=== PATIENT | male | born 1970 | race Caucasian/White ===

== ENCOUNTER → 2016-04-05 | Outpatient (REF) | payer OTHER ==
[~2016-04-05] MED LIST: /TAMS4CA PO; CIPR500T89 PO; DEPA250T32 PO; KETO10TAB PO; OMEP40CA2 PO; VESI10TA PO
[2016-04-05 13:12] LABS: IMMMOTILE SPERM CENTRIFUGED ABSENT (ABSENT); IMMOTILE SPERM ABSENT (ABSENT); MOTILE SPERM ABSENT (ABSENT); MOTILE SPERM CENTRIFUGED ABSENT (ABSENT)
== END ==
LOC: M SMT 11:59
PROVIDERS: ATTEND Urology
DX: Z30.2 Encounter for sterilization (principal)

== ENCOUNTER → 2016-05-25 | Outpatient (CLI) | payer OTHER ==
[2016-05-25 13:24] LABS: BASO % 0.7 % (0.0-1.0); EOS % 0.9 % (0.0-3.0); LARGE UNSTAINED CELL # 0.1 K/mm3 (0.0-0.4); LARGE UNSTAINED CELL % 3.1 % (0.0-4.0); LYMPH # 1.8 K/mm3 (1.5-4.5); LYMPH % 40.8 % (24.0-44.0); MEAN CORPUSCULAR HEMOGLOBIN 29.7 pg (27.0-33.0); MEAN CORPUSCULAR HGB CONC 33.6 g/dl (32.0-36.5); MEAN CORPUSCULAR VOLUME 88.4 fl (80.0-96.0); MONO # 0.6 K/mm3 (0.0-0.8); MONO % 15.5 % (0.0-5.0); NEUTROPHILS # 1.6 K/mm3 (1.8-7.7); NEUTROPHILS % 38.9 % (36.0-66.0); PLATELET COUNT, AUTOMATED 190 k/mm3 (150-450); RED CELL DISTRIBUTION WIDTH 12.3 % (11.5-14.5); WHITE BLOOD COUNT 4.1 K/mm3 (4.0-10.0)
[2016-05-25 13:57] LABS: ALBUMIN 3.8 GM/DL (3.2-5.2); ALBUMIN/GLOBULIN RATIO 1.19 (1.00-1.93); ALKALINE PHOSPHATASE 73 U/L (45-117); ALT/SGPT 39 U/L (12-78); ANION GAP 5 MEQ/L (8-16); AST/SGOT 29 U/L (15-37); BILIRUBIN,TOTAL 0.9 MG/DL (0.2-1.0); BLOOD UREA NITROGEN 13 MG/DL (7-18); CALCIUM LEVEL 9.2 MG/DL (8.5-10.1); CARBON DIOXIDE LEVEL 30 MEQ/L (21-32); CHLORIDE LEVEL 109 MEQ/L (98-107); CHOLESTEROL LEVEL 150 MG/DL (<200); CREATININE FOR GFR 1.03 MG/DL (0.70-1.30); FREE T4 1.14 NG/DL (0.76-1.46); GLOMERULAR FILTRATION RATE > 60.0 (>60); GLUCOSE, FASTING 90 MG/DL (70-105); POTASSIUM SERUM 3.9 MEQ/L (3.5-5.1); SODIUM LEVEL 144 MEQ/L (136-145); TRIGLYCERIDES LEVEL 81 MG/DL (<150)
== END ==
LOC: M LAB 12:57
PROVIDERS: ATTEND Physician Assistant
DX: R79.89 Other specified abnormal findings of blood chemistry (principal)

== ENCOUNTER → 2016-06-09 | Outpatient (CLI) | payer OTHER ==
--- NOTE | 2016-06-10 13:59 | REP ---
NUCLEAR THYROID SCAN: Following the oral administration of 370 microcuries of Iodine 123 of sodium iodine, thyroid uptake is measured. The 2 hour uptake is 6.95% which is within the normal range of the 6-12%. The 24 hour uptake is 33.7% which is within the normal range of 25-35%. Thyroid scan shows both lobes to be relatively normal in size, with the length of both lobes between 4 and 5 cm. No focal hot or cold nodule is seen. IMPRESSION: Unremarkable thyroid uptake and scan as above. Signed by Lalito Zapata MD 06/10/2016 03:29 P
== END ==
LOC: M RAD 08:42
PROVIDERS: ATTEND Physician Assistant
DX: E05.90 Thyrotoxicosis, unspecified without thyrotoxic crisis or storm (principal)

== ENCOUNTER → 2016-06-29 | Outpatient (REF) | payer OTHER | LOC: M LABDRAW1 13:23 | PROVIDERS: ATTEND Internal Medicine Endocrinology, Diabetes & Metabolism | DX: E05.00 Thyrotoxicosis with diffuse goiter without thyrotoxic crisis or storm (principal) ==

== ENCOUNTER 2016-08-16 00:19 | Emergency (ER) | payer OTHER ==
[~2016-08-16] VITALS: Ht 182.9 cm; Wt 80.0 kg
[2016-08-16] MEDS ORDERED: AVON1KIT IM (00:29)
[2016-08-16] MEDS ORDERED: MECLIZINE 25 MG TABLET PO ONE (03:15)
[2016-08-16] MEDS ORDERED: METOCLOPRAMIDE INJ 10MG/2ML VIAL (J2765) IV ONE (03:15)
[2016-08-16] MEDS ORDERED: KETOROLAC 30 MG/ML VIAL (J1885) IV ONE (03:15)
[2016-08-16] MEDS ORDERED: NS 1,000 ML IV ONE (03:15)
[2016-08-16] MEDS ORDERED: MECL-68 PO (04:55)
[2016-08-16 05:10] VITALS: BP 122/68
== END 2016-08-16 05:30 | disposition home or self-care (01) ==
LOC: M ED 01:28
DX: G35 Multiple sclerosis (principal); T37.5X5A Adverse effect of antiviral drugs, initial encounter

== ENCOUNTER → 2016-10-22 | Outpatient (CLI) | payer OTHER ==
[~2016-10-22] MED LIST changes: +AVON1KIT IM; +GABA-279 PO; +IBUP-1022 PO; +MECL-68 PO; +PRED20TA PO
[2016-10-22 13:29] LABS: FREE T4 1.19 NG/DL (0.76-1.46)
== END ==
LOC: M LAB 12:17
PROVIDERS: ATTEND Internal Medicine Endocrinology, Diabetes & Metabolism
DX: E05.00 Thyrotoxicosis with diffuse goiter without thyrotoxic crisis or storm (principal)

== ENCOUNTER → 2016-11-10 | Outpatient (CLI) | payer OTHER ==
--- NOTE | 2016-11-10 11:51 | REP ---
RIGHT ANKLE SERIES: Five views. HISTORY: Injury. FINDINGS: Five views of the right ankle demonstrate prominent plantar calcaneal spurring. Ankle mortise is intact. No fracture is seen. IMPRESSION: Plantar heel spurring. No fracture noted. Signed by Oli Barrera MD 11/10/2016 01:12 P
--- NOTE | 2016-11-10 11:51 | REP ---
RIGHT FOOT SERIES: Four views. HISTORY: Injury with dorsal and midfoot pain. FINDINGS: Four views right foot show overall normal mineralization. Plantar calcaneal spurring is noted. No fracture or subluxation is seen. IMPRESSION: Heel spurring. No acute bony abnormality. Signed by Oli Barrera MD 11/10/2016 01:11 P
== END ==
LOC: M LRY 11:10
PROVIDERS: ATTEND Nurse Practitioner Family
DX: M77.31 Calcaneal spur, right foot (principal)

== ENCOUNTER 2016-11-14 15:09 | Emergency (ER) | payer OTHER ==
[~2016-11-14] VITALS: Ht 182.9 cm; Wt 79.5 kg
[~2016-11-14 15:09] MED LIST changes: -GABA-279 PO; -IBUP-1022 PO; -PRED20TA PO
[2016-11-14] MEDS ORDERED: IBUP-1022 PO (15:43)
[2016-11-14] MEDS ORDERED: PRED20TA PO (20:44)
[2016-11-14] MEDS ORDERED: GABA-279 PO (20:44)
[2016-11-14] MEDS ORDERED: predniSONE 20 MG TAB PO ONE (20:45)
[2016-11-14 20:58] VITALS: BP 118/78
== END 2016-11-14 20:59 | disposition home or self-care (01) ==
LOC: M ED 15:09
DX: M25.571 Pain in right ankle and joints of right foot (principal); X50.1XXA Overexertion from prolonged static or awkward postures, initial encounter; Y92.89 Other specified places as the place of occurrence of the external cause; Y93.89 Activity, other specified; Y99.0 Civilian activity done for income or pay

== ENCOUNTER 2017-01-25 01:39 | Emergency (ER) | payer OTHER, SELFPAY ==
[~2017-01-25] VITALS: Ht 182.9 cm; Wt 77.7 kg
[~2017-01-25 01:39] MED LIST changes: +GABA-279 PO; +IBUP-1022 PO; +PRED20TA PO
[2017-01-25 02:56] LABS: BASO % 0.5 % (0.0-1.0); EOS # 0.2 10^3/uL (0.0-0.50); IMMATURE GRANULOCYTE % 0.2 % (0-0); LYMPH # 2.5 10^3/uL (1.5-4.5); LYMPH % 38.2 % (24.0-44.0); MEAN CORPUSCULAR HEMOGLOBIN 29.6 pg (27.0-33.0); MEAN CORPUSCULAR HGB CONC 34.1 g/dl (32.0-36.5); MEAN CORPUSCULAR VOLUME 86.7 fl (80.0-96.0); MONO # 0.8 10^3/uL (0.0-0.8); MONO % 11.9 % (0.0-5.0); NEUTROPHILS % 46.2 % (36.0-66.0); PLATELET COUNT, AUTOMATED 193 10^3/uL (150-450); RED CELL DISTRIBUTION WIDTH 11.9 % (11.5-14.5); WHITE BLOOD COUNT 6.6 10^3/uL (4.0-10.0)
[2017-01-25 03:05] LABS: INR 1.04
[2017-01-25 03:21] LABS: ANION GAP 6 MEQ/L (8-16); BLOOD UREA NITROGEN 16 MG/DL (7-18); CALCIUM LEVEL 9.1 MG/DL (8.5-10.1); CARBON DIOXIDE LEVEL 30 MEQ/L (21-32); CHLORIDE LEVEL 107 MEQ/L (98-107); CREATININE FOR GFR 1.01 MG/DL (0.70-1.30); GLOMERULAR FILTRATION RATE > 60.0 (>60); GLUCOSE, FASTING 134 MG/DL (70-105); POTASSIUM SERUM 3.6 MEQ/L (3.5-5.1); SODIUM LEVEL 143 MEQ/L (136-145)
--- NOTE | 2017-01-25 03:30 | REPUSA ---
CLINICAL HISTORY: Suspected cerebrovascular accident. TECHNIQUE: Multiple axial brain CT scan sections were obtained from base to vertex without contrast a dministration. COMMENTS: The study shows normal configuration of sella turcica. There are no intra or extra-axial collections. There is no mass effect or midline shift. There is no evidence of hematoma formation. No hydrocephal us is present. No abnormal calcifications are noted. No significant abnormalities are seen either in the posterior fossa or supratentorial compartment. The sinuses and mastoid air cells are patent. IMPRESSION: No evidence of acute intracranial pathology. Thank you for your kind referral of this patient.
[2017-01-25] MEDS ORDERED: METOCLOPRAMIDE INJ 10MG/2ML VIAL (J2765) IV ONE (04:00)
[2017-01-25] MEDS ORDERED: NS 1,000 ML IV ONE (04:00)
[2017-01-25] MEDS ORDERED: diphenhydrAMINE INJ 50MG/ML VIAL (J1200) IV ONE (04:00)
[2017-01-25] MEDS ORDERED: KETOROLAC 30 MG/ML VIAL (J1885) IV ONE (04:00)
[2017-01-25] MEDS ORDERED: PROHANCE 279.3MG/ML 15ML VIAL (A9576) As Ordered ONE (06:08)
--- NOTE | 2017-01-25 07:30 | REPUSA ---
CLINICAL HISTORY: MS. vertigo. TECHNIQUE: MRI of the brain was performed without administration of intravenous contrast material. T1 spine echo, T2 fast spin echo and FLAIR sequences were obtained in sagittal, axial and coronal plane s. 15 cc of ProHance were injected intravenously. FINDINGS: The sella and parasellar regions are unremarkable in appearance. The corpus callosum and cerebellar t onsils are of normal configuration and position. There are no intra or extra-axial collections. There is no mass effect or midline shift. There is no evidence of hematoma formation. There is no hydrocep halus. The brain stem shows no mass effects, infarcts or hemorrhage. There are no cerebellopontine tumors. T he acoustic nerves are symmetrical. No cerebellar intra-axial pathology delineated. The fourth ventri bertrand and aqueduct are normal. No abnormalities of the optic nerves are identified. There is no evidenc e of atrophic or degenerative changes. No dural or subdural masses or collections are detected. The visualized arterial structures demonstrate normal appearing flow voids. The VII and VIII nerve bu ndles are visualized and are unremarkable in appearance. Several foci of T2/FLAIR hyperintensity are noted in the bilateral periventricular and subcortical wh ite matter. The foci measure between 3 and 12 mm in diameter. No associated abnormal enhancement or r estricted diffusion. Similar foci are noted in the infratentorial white matter more prominent surrounding the fourth ventr icle. 2.6 cm chronic mucous retention cyst in the right maxillary sinus. IMPRESSION: Multiple T2 hyperintense foci in the periventricular and to a lesser extent subcortical supratentoria l white matter. Findings are suggestive of demyelinating disease. Multiple similar smaller at foci identified on the T2-weighted images demonstrate increased signal in the periventricular white matter surrounding the fourth ventricle. Findings are suggestive of demyel inating disease. No restricted diffusion or abnormal enhancement is identified in a manner suggestive of active demyel inating plaque. Thank you for your kind referral of this patient.
--- NOTE | 2017-01-25 07:50 | REPUSA ---
CLINICAL HISTORY: Vertigo. TECHNIQUE: Three dimensional mrkz-hs-kajkyw angiography is performed of the [place] of [place]. The vesna dy was performed with IV contrast agent. 15 cc of ProHance were injected intravenously. FINDINGS: The supraclinoid portions of the internal carotid arteries are of normal shape. The normal bifurcation is seen. The middle cerebral arteries are unremarkable in appearance. The posterior circu lation is visualized and shows no evidence of occlusion or aneurysm formation. The basilar tip is see n and shows no aneurysm formation. There is no evidence of beading to suggest vasculitis. IMPRESSION: MRA of the man[place] of [place] is within normal limits. Thank you for your kind referral of this patient.
--- NOTE | 2017-01-25 08:09 | REP ---
Clinical: Acute cerebrovascular accident . Comparison: 05/07/2015 . Findings: The mediastinum and cardiac silhouette are stable and within normal limits for portable technique. The lung hannon are clear without acute consolidation, effusion, or pneumothorax. Skeletal structures are intact. Impression: No acute cardiopulmonary process appreciated. Signed by Shakir Kent MD 01/25/2017 08:00 A
[2017-01-25] MEDS ORDERED: methylPREDNISolone 1,000 MG, VIAL MATE ADAPTER 1 EACH in D5W 250 ML IV ONE (09:00)
--- NOTE | 2017-01-25 09:25 | ECGEPIP ---
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
[2017-01-25 10:28] VITALS: BP 105/69
[2017-01-26] MEDS ORDERED: KETO10TAB PO (13:45)
[2017-01-26] MEDS ORDERED: PRED20TA PO (13:45)
[2017-01-26] MEDS ORDERED: PRIL20CA9 PO (13:45)
== END 2017-01-25 10:35 | disposition home or self-care (01) ==
LOC: M ED 01:39
DX: G35 Multiple sclerosis (principal); Z79.899 Other long term (current) drug therapy; Z88.5 Allergy status to narcotic agent; Z88.8 Allergy status to other drugs, medicaments and biological substances
CPT/HCPCS: 70450; 70544; 70553; 71010; 80048; 81001; 82550; 82553; 85025; 85610; 85730; 86850; 86900; 86901; 87086; 93000; 93041; 96361; 96365; 96375; 99285; A9576; J1200; J1885; J2765; J2930; J3360

== ENCOUNTER 2017-01-25 22:12 | Emergency (ER) | payer OTHER ==
[~2017-01-25] VITALS: Ht 182.9 cm; Wt 77.7 kg
[2017-01-25] MEDS ORDERED: MORPHINE 10 MG/ML 1ML VIAL IM ONE (23:00)
[2017-01-25 23:46] VITALS: BP 125/65
[2017-01-26] MEDS ORDERED: PRIL20CA9 PO (13:45)
[2017-01-26] MEDS ORDERED: KETO10TAB PO (13:45)
[2017-01-26] MEDS ORDERED: PRED20TA PO (13:45)
== END 2017-01-25 23:47 | disposition home or self-care (01) ==
LOC: M ED 22:12
DX: G35 Multiple sclerosis (principal); M54.9 Dorsalgia, unspecified; M79.605 Pain in left leg

== ENCOUNTER 2017-01-26 10:12 | Emergency (ER) | payer OTHER ==
[~2017-01-26] VITALS: Ht 182.9 cm; Wt 77.7 kg
[2017-01-26] MEDS ORDERED: methylPREDNISolone 1,000 MG, VIAL MATE ADAPTER 1 EACH in D5W 250 ML IV ONE (11:00)
[2017-01-26] MEDS ORDERED: KETO10TAB PO (13:45)
[2017-01-26] MEDS ORDERED: PRED20TA PO (13:45)
[2017-01-26] MEDS ORDERED: PRIL20CA9 PO (13:45)
[2017-01-26 14:18] VITALS: BP 134/73
--- NOTE | 2017-01-26 18:06 | CR.PDOC ---
[facility] Consultation Consultation DATE OF CONSULTATION: Jan 26, 2017 at 10:12 PRIMARY CARE PHYSICIAN: JANET Keane REFERRING PROVIDER: Olvin Pinto REASON FOR CONSULTATION/CHIEF COMPLAINT: . MS Flare, Back Pain HISTORY OF PRESENT ILLNESS: . 46-year-old male with past medical history of multiple sclerosis, GERD, and migraine headaches presents to the ER with a chief complaint of lower back pain and tremors of the right upper extremity. The patient was seen in the ER yesterday with complaints of the same, however he was discharged after receiving a dose of Solu-Medrol. At this time, the patient returned to the ER with complaints of the same. 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 However, the patient states that he does have a history of multiple sclerosis and he was concerned about the tremors of his right hand. He does tell me that he has had issues with dropping things in his right hand in the past, and that this has been a chronic issue. However, he denies any acute complaints at this time, and states that his tremors have resolved. He is concerned about returning back to work, given his lower back pain. The patient denies any acute complaints of numbness/tingling, visual blurring, slurring of speech, facial droop, weakness of the extremities, or any other acute neurological complaints. The patient also denies any fevers, chills, chest pain, palpitations, abdominal pain, or any nausea/vomiting/diarrhea. The patient did have an MRI done on 01/25/17 which revealed no acute changes compared to his previous imaging done in 2014. ALLERGIES: Please see below. HOME MEDICATIONS: Please see below. PAST MEDICAL HISTORY: As noted in HPI. PAST SURGICAL HISTORY: LT KNEE MENISCUS REPAIR - DR. CONN 04/2012 DOUBLE JJ STENT PLACEMENT 03/2013 RIGHT ESWL 05/02/13 VASECTOMY 2015 SOCIAL HISTORY: Patient denies any illicit drug use or tobacco use. Occasionally drinks alcohol. 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 PHYSICAL EXAMINATION: VITAL SIGNS: Please see below. GENERAL APPEARANCE: . Awake, alert, oriented 4 HEENT: . Normocephalic, atraumatic. PERRLA, extraocular movements intact RESPIRATORY: . Clear to auscultation bilaterally CARDIOVASCULAR: . Normal rate, normal S1, S2 ABDOMEN: . Soft, nontender, nondistended EXTREMITIES: . 5/5 strength in all extremities. Mild paravertebral tenderness noted on palpation on the left side in the lumbar region. LABORATORY DATA: Please see below. ASSESSMENT/PLAN: ?MS Flare No acute neurological manifestations on physical exam--- previously stated right hand tremors have resolved MRI from 01/25/17 unchanged compared to previous imaging. The case was discussed with the patient's outpatient neurologist, Dr. Olmedo by the ER provider The patient will be discharged home on by mouth steroids, and can follow-up in the office on 01/30/17. Back Pain Basically the patient's symptoms, and physical examination this appears to be musculoskeletal in nature The patient has been prescribed Toradol given his multiple allergies to medications. Disposition-the patient has decided to go home on the aforementioned by mouth prednisone and Toradol. He has been advised to follow-up with his outpatient neurologist on 01/30/17. In addition, I have advised the patient to follow-up with his primary care physician within 5-7 days for further follow- up. The patient has been consulted to return to the ER if his symptoms were to worsen, or for any acute emergencies. Vital Signs/I&O Vital Signs Date Time Temp Pulse Resp B/P (MAP) Pulse Ox O2 Delivery O2 Flow Rate FiO2 01/26/17 14:18 98.5 75 18 134/73 (93) 97 Room Air I&O- Last 24 Hours up to 6 AM 01/27/17 06:00 Intake Total 266 ml Balance 266 ml Laboratory Data Labs 24H Laboratory Tests 2 01/26/17 11:27: Urine Appearance HAZY, Urine Color YELLOW, Urine pH 5.0, Urine Specific [place] 1.024, Urine Protein NEGATIVE, Urine Glucose (UA) 2+H, Urine Ketones NEGATIVE, Urine Urobilinogen 0.2, Urine Bilirubin NEGATIVE, Urine Leukocyte Esterase NEGATIVE, Urine Blood NEGATIVE, Urine Nitrite NEGATIVE, Urine WBC (Auto) 1, Urine RBC (Auto) 2, Urine Hyaline Casts (Auto) 0, Urine Bacteria (Auto) NEGATIVE , Urine Squamous Epithelial Cells 0, Urine Mucus (Auto) SMALL, Urine Sperm (Auto ) Allergies Coded Allergies: Propranolol (Verified Allergy, Mild, 01/25/17) Hydrocodone (Verified Allergy, Unknown, 01/25/17) Oxycodone (Verified Allergy, Unknown, 01/25/17) Propoxyphene (Verified Allergy, Unknown, 01/25/17) Tramadol (Verified Allergy, Unknown, 01/25/17) Home Medications Scheduled Ketorolac Tromethamine (Ketorolac Tromethamine) 10 Mg Tab, 10 MG PO TID for 3 Days, #9 Omeprazole (Prilosec) 20 Mg Cap, 20 MG PO DAILY, #14 Prednisone (Prednisone) 20 Mg Tab, 60 MG PO DAILY for 3 Days, #9 OLVIN PINTO MD Jan 26, 2017 18:06
== END 2017-01-26 14:32 | disposition home or self-care (01) ==
LOC: M ED 10:12
DX: G35 Multiple sclerosis (principal); M54.42 Lumbago with sciatica, left side; Z79.899 Other long term (current) drug therapy; Z88.5 Allergy status to narcotic agent; Z88.8 Allergy status to other drugs, medicaments and biological substances
CPT/HCPCS: 81001; 96365; 99284; J2930

== ENCOUNTER 2017-01-31 12:41 | Emergency (ER) | payer OTHER ==
[~2017-01-31] VITALS: Ht 182.9 cm; Wt 77.7 kg
[~2017-01-31 12:41] MED LIST changes: +PRIL20CA9 PO
--- NOTE | 2017-01-31 14:24 | REP ---
PORTABLE CHEST: 01/31/2017 COMPARISON: 01/25/2017 CLINICAL HISTORY: Syncope, near-syncope. The lung hannon are better inflated than on the previous study. The CP angles are sharply defined. There is no pleural effusion, lateral pleural thickening, apical scarring or pneumothorax. Some vascular congestion with venous hypertension without pulmonary edema noted. No infiltrate, atelectasis or mass. The aorta and airway intact. Bones intact. IMPRESSION: 1. Some minor venous hypertension without pulmonary edema, effusion, infiltrate, atelectasis or other acute finding. No cardiomegaly or widening of the mediastinum. Signed by Jimmy Oconnor MD 01/31/2017 08:31 P
[2017-01-31 14:25] LABS: BASO % 0.1 % (0.0-1.0); EOS # 0.1 10^3/uL (0.0-0.50); EOS % 1.6 % (0.0-3.0); IMMATURE GRANULOCYTE % 0.7 % (0-0); LYMPH # 3.6 10^3/uL (1.5-4.5); LYMPH % 43.2 % (24.0-44.0); MEAN CORPUSCULAR HEMOGLOBIN 29.5 pg (27.0-33.0); MEAN CORPUSCULAR VOLUME 84.5 fl (80.0-96.0); MONO # 0.7 10^3/uL (0.0-0.8); MONO % 8.7 % (0.0-5.0); NEUTROPHILS # 3.8 10^3/uL (1.8-7.7); NEUTROPHILS % 45.7 % (36.0-66.0); PLATELET COUNT, AUTOMATED 217 10^3/uL (150-450); RED CELL DISTRIBUTION WIDTH 11.8 % (11.5-14.5); WHITE BLOOD COUNT 8.4 10^3/uL (4.0-10.0)
[2017-01-31 14:47] LABS: ANION GAP 5 MEQ/L (8-16); BLOOD UREA NITROGEN 22 MG/DL (7-18); CALCIUM LEVEL 8.9 MG/DL (8.5-10.1); CARBON DIOXIDE LEVEL 32 MEQ/L (21-32); CHLORIDE LEVEL 107 MEQ/L (98-107); CREATININE FOR GFR 0.98 MG/DL (0.70-1.30); GLOMERULAR FILTRATION RATE > 60.0 (>60); GLUCOSE, FASTING 80 MG/DL (70-105); MAGNESIUM LEVEL 2.5 MG/DL (1.8-2.4); POTASSIUM SERUM 3.5 MEQ/L (3.5-5.1); SODIUM LEVEL 144 MEQ/L (136-145)
[2017-01-31 15:33] LABS: T UPTAKE 36 % (33-40); THYROXINE (T4) 8.4 UG/DL (4.5-12.0)
--- NOTE | 2017-01-31 15:42 | ECGEPIP ---
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
[2017-01-31] MEDS ORDERED: diphenhydrAMINE INJ 50MG/ML VIAL (J1200) IV STA (15:57)
[2017-01-31] MEDS ORDERED: KETOROLAC 30 MG/ML VIAL (J1885) IV ONE (16:00)
[2017-01-31] MEDS ORDERED: METOCLOPRAMIDE INJ 10MG/2ML VIAL (J2765) IV ONE (16:00)
[2017-01-31] MEDS ORDERED: diazePAM 5 MG TAB PO ONE (16:00)
[2017-01-31] MEDS ORDERED: NS 1,000 ML IV ONE ×2 (18:30→20:00)
[2017-01-31 22:18] VITALS: BP 114/71
== END 2017-01-31 22:20 | disposition home or self-care (01) ==
LOC: M ED 12:41
DX: I95.1 Orthostatic hypotension (principal); G89.29 Other chronic pain; M54.9 Dorsalgia, unspecified; G35 Multiple sclerosis; E05.00 Thyrotoxicosis with diffuse goiter without thyrotoxic crisis or storm; Z79.899 Other long term (current) drug therapy; Z88.5 Allergy status to narcotic agent; Z88.8 Allergy status to other drugs, medicaments and biological substances
CPT/HCPCS: 71010; 80048; 83605; 83735; 84436; 84443; 84479; 85025; 86140; 93000; 93041; 94760; 96374; 96375; 99285; J1200; J1885; J2765

== ENCOUNTER → 2017-03-08 | Outpatient (CLI) | payer OTHER ==
[~2017-03-08] MED LIST changes: -/TAMS4CA PO; -AVON1KIT IM; -CIPR500T89 PO; -DEPA250T32 PO; -GABA-279 PO; -IBUP-1022 PO; -KETO10TAB PO; -MECL-68 PO; -OMEP40CA2 PO; -PRED20TA PO; -PRIL20CA9 PO; +PROHANCE 279.3MG/ML 15ML VIAL (A9576) As Ordered; -VESI10TA PO
== END ==
LOC: M RAD 12:27
DX: G35 Multiple sclerosis (principal); M47.812 Spondylosis without myelopathy or radiculopathy, cervical region
CPT/HCPCS: A9576

== ENCOUNTER → 2017-04-11 | Outpatient (REF) | payer OTHER | LOC: M SFHCPLAZ 16:19 | DX: J06.9 Acute upper respiratory infection, unspecified (principal) | CPT/HCPCS: 87633 ==

== ENCOUNTER → 2017-04-24 | Outpatient (REF) | payer OTHER ==
[2017-04-24 16:19] LABS: FREE T4 1.74 NG/DL (0.76-1.46); THYROID STIMULATING HORMONE < 0.005 uIU/ML (0.358-3.740)
[2017-04-24 16:55] LABS: HIV 1&2 SCREEN CENTAUR NEGATIVE (NEGATIVE)
[2017-04-24 17:39] LABS: CHLAMYDIA DNA AMPLIFICATION NEGATIVE (NEGATIVE); GC DNA AMPLIFICATION NEGATIVE (NEGATIVE)
[2017-04-27 00:06] LABS: HSV TYPE I IgG SPECIFIC <0.91 index (0.00-0.90); HSV TYPE II IgG SPECIFIC <0.91 index (0.00-0.90); THYROID BINDING GLOBULIN 12 ug/mL (13-39)
== END ==
LOC: M SFHCPLAZ 13:10
DX: N50.819 Testicular pain, unspecified (principal); R68.89 Other general symptoms and signs

== ENCOUNTER → 2017-04-25 | Outpatient (CLI) | payer OTHER | LOC: M RAD 16:00 | DX: N50.819 Testicular pain, unspecified (principal); I86.1 Scrotal varices | CPT/HCPCS: 76870 ==

== ENCOUNTER → 2017-05-18 | Outpatient (CLI) | payer OTHER | LOC: M RAD 09:49 | DX: E05.00 Thyrotoxicosis with diffuse goiter without thyrotoxic crisis or storm (principal) ==

== ENCOUNTER → 2017-06-02 | Outpatient (CLI) | payer OTHER | LOC: M RAD 13:56 | DX: E05.00 Thyrotoxicosis with diffuse goiter without thyrotoxic crisis or storm (principal) ==

== ENCOUNTER → 2017-06-12 | Outpatient (CLI) | payer OTHER ==
[2017-06-12 16:23] LABS: THYROID STIMULATING HORMONE < 0.005 uIU/ML (0.358-3.740)
[2017-06-12 16:45] LABS: FREE T4 2.29 NG/DL (0.76-1.46)
== END ==
LOC: M LAB 14:58
DX: E05.00 Thyrotoxicosis with diffuse goiter without thyrotoxic crisis or storm (principal)
CPT/HCPCS: 84443

== ENCOUNTER 2017-06-19 16:30 | Emergency (ER) | payer OTHER ==
[2017-06-19 17:36] LABS: BASO % 0.2 % (0.0-1.0); EOS # 0.1 10^3/uL (0.0-0.50); EOS % 0.6 % (0.0-3.0); HEMATOCRIT 41.4 % (42.0-52.0); IMMATURE GRANULOCYTE % 0.2 % (0-3.0); LYMPH # 1.7 10^3/uL (1.5-4.5); MEAN CORPUSCULAR HEMOGLOBIN 28.8 pg (27.0-33.0); MEAN CORPUSCULAR HGB CONC 33.8 g/dl (32.0-36.5); MEAN CORPUSCULAR VOLUME 85.2 fl (80.0-96.0); MONO % 11.2 % (0.0-5.0); NEUTROPHILS # 5.8 10^3/uL (1.8-7.7); NEUTROPHILS % 67.8 % (36.0-66.0); PLATELET COUNT, AUTOMATED 259 10^3/uL (150-450); RED BLOOD COUNT 4.86 10^6/uL (4.30-6.10); RED CELL DISTRIBUTION WIDTH 11.3 % (11.5-14.5); WHITE BLOOD COUNT 8.5 10^3/uL (4.0-10.0)
[2017-06-19] MEDS ORDERED: ISOVUE-370 76% 100ML VIAL (Q9967) As Ordered (17:47)
[2017-06-19 17:50] LABS: ANION GAP 7 MEQ/L (8-16); BLOOD UREA NITROGEN 17 MG/DL (7-18); CALCIUM LEVEL 8.9 MG/DL (8.5-10.1); CARBON DIOXIDE LEVEL 27 MEQ/L (21-32); CHLORIDE LEVEL 108 MEQ/L (98-107); CPK CREATINE PHOSPHOKINASE 80 U/L (39-308); CREATININE FOR GFR 0.99 MG/DL (0.70-1.30); GLOMERULAR FILTRATION RATE > 60.0 (>60); GLUCOSE, FASTING 86 MG/DL (70-100); MB/CK RELATIVE INDEX 1.25 (< OR =4); NT-PRO BNP 117 PG/ML (<125); POTASSIUM SERUM 3.8 MEQ/L (3.5-5.1); SODIUM LEVEL 142 MEQ/L (136-145); TROPONIN I < 0.02 NG/ML (< 0.10)
[2017-06-19] MEDS: ASPIRIN 81 MG CHEW TABLET PO (18:28)
== END 2017-06-19 20:03 | disposition left against medical advice (07) ==
LOC: M ED 16:30
DX: R07.9 Chest pain, unspecified (principal); G35 Multiple sclerosis; E05.90 Thyrotoxicosis, unspecified without thyrotoxic crisis or storm; Z79.899 Other long term (current) drug therapy; Z88.5 Allergy status to narcotic agent; Z88.8 Allergy status to other drugs, medicaments and biological substances
CPT/HCPCS: Q9967

== ENCOUNTER 2017-06-22 09:12 | Emergency (ER) | payer OTHER ==
[2017-06-22] MEDS: ASPIRIN 81 MG CHEW TABLET PO (09:52)
[2017-06-22 10:02] LABS: ABG BASE EXCESS -0.6 (-2.0-2.0); ABG O2 SATURATION 98.1 % (95.0-99.0); ABG PARTIAL PRESSURE CO2 34.7 mmHg (35.0-45.0); ABG TOTAL CO2 24.1 MEQ/L (22.0-29.0); ABG pH (ARTERIAL) 7.439 UNITS (7.350-7.450)
[2017-06-22 10:24] LABS: D-DIMER QUANT 588.9 ng/ml (<500)
[2017-06-22 10:37] LABS: ANION GAP 7 MEQ/L (8-16); BLOOD UREA NITROGEN 13 MG/DL (7-18); CARBON DIOXIDE LEVEL 25 MEQ/L (21-32); CHLORIDE LEVEL 113 MEQ/L (98-107); CPK CREATINE PHOSPHOKINASE 84 U/L (39-308); CREATININE FOR GFR 0.78 MG/DL (0.70-1.30); GLOMERULAR FILTRATION RATE > 60.0 (>60); GLUCOSE, FASTING 98 MG/DL (70-100); POTASSIUM SERUM 3.7 MEQ/L (3.5-5.1); SODIUM LEVEL 145 MEQ/L (136-145); TROPONIN I < 0.02 NG/ML (< 0.10)
[2017-06-22 10:38] LABS: BASO % 0.5 % (0.0-1.0); EOS # 0.2 10^3/uL (0.0-0.50); EOS % 3.3 % (0.0-3.0); HEMOGLOBIN 13.6 g/dl (13.5-17.5); IMMATURE GRANULOCYTE % 0.3 % (0-3.0); LYMPH # 1.3 10^3/uL (1.5-4.5); LYMPH % 22.1 % (24.0-44.0); MEAN CORPUSCULAR HEMOGLOBIN 28.6 pg (27.0-33.0); MEAN CORPUSCULAR VOLUME 84.2 fl (80.0-96.0); MONO # 0.6 10^3/uL (0.0-0.8); MONO % 9.8 % (0.0-5.0); NEUTROPHILS # 3.8 10^3/uL (1.8-7.7); PLATELET COUNT, AUTOMATED 263 10^3/uL (150-450); RED BLOOD COUNT 4.75 10^6/uL (4.30-6.10); RED CELL DISTRIBUTION WIDTH 11.5 % (11.5-14.5)
[2017-06-22 10:42] LABS: CK-MB VALUE MASS 1.3 NG/ML (<3.6); FREE T4 2.06 NG/DL (0.76-1.46); MB/CK RELATIVE INDEX 1.54 (< OR =4); THYROID STIMULATING HORMONE < 0.005 uIU/ML (0.358-3.740)
[2017-06-22] MEDS ORDERED: ISOVUE-370 76% 100ML VIAL (Q9967) As Ordered (11:49)
== END 2017-06-22 13:15 | disposition home or self-care (01) ==
LOC: M ED 09:12
DX: R07.89 Other chest pain (principal); E05.90 Thyrotoxicosis, unspecified without thyrotoxic crisis or storm; Z92.3 Personal history of irradiation; G35 Multiple sclerosis; Z79.899 Other long term (current) drug therapy; Z88.5 Allergy status to narcotic agent; Z88.8 Allergy status to other drugs, medicaments and biological substances
CPT/HCPCS: Q9967

== ENCOUNTER → 2017-07-10 | Outpatient (CLI) | payer OTHER ==
[2017-07-10 18:57] LABS: FREE T4 0.39 NG/DL (0.76-1.46); THYROID STIMULATING HORMONE 0.113 uIU/ML (0.358-3.740)
== END ==
LOC: M LAB 16:41
DX: E05.00 Thyrotoxicosis with diffuse goiter without thyrotoxic crisis or storm (principal)
CPT/HCPCS: 84443

== ENCOUNTER → 2017-07-31 | Outpatient (CLI) | payer OTHER ==
[2017-07-31 12:29] LABS: FREE T4 0.23 NG/DL (0.76-1.46)
== END ==
LOC: M LAB 11:39
DX: E05.00 Thyrotoxicosis with diffuse goiter without thyrotoxic crisis or storm (principal)
CPT/HCPCS: 84443

== ENCOUNTER → 2017-08-01 | Outpatient (CLI) | payer OTHER ==
[2017-08-01 12:27] LABS: BASO # 0.1 10^3/uL (0.0-0.2); BASO % 1.2 % (0.0-1.0); EOS # 0.2 10^3/uL (0.0-0.50); EOS % 4.7 % (0.0-3.0); HEMATOCRIT 46.8 % (42.0-52.0); IMMATURE GRANULOCYTE % 0.2 % (0-3.0); LYMPH % 38.3 % (24.0-44.0); MEAN CORPUSCULAR HEMOGLOBIN 29.1 pg (27.0-33.0); MEAN CORPUSCULAR HGB CONC 34.2 g/dl (32.0-36.5); MEAN CORPUSCULAR VOLUME 85.1 fl (80.0-96.0); MONO # 0.3 10^3/uL (0.0-0.8); MONO % 5.9 % (0.0-5.0); NEUTROPHILS # 2.6 10^3/uL (1.8-7.7); NEUTROPHILS % 49.7 % (36.0-66.0); PLATELET COUNT, AUTOMATED 274 10^3/uL (150-450); RED CELL DISTRIBUTION WIDTH 13.4 % (11.5-14.5); WHITE BLOOD COUNT 5.1 10^3/uL (4.0-10.0)
[2017-08-01 13:22] LABS: ALBUMIN 4.2 GM/DL (3.2-5.2); ALBUMIN/GLOBULIN RATIO 1.24 (1.00-1.93); ALKALINE PHOSPHATASE 95 U/L (45-117); ALT/SGPT 34 U/L (12-78); ANION GAP 5 MEQ/L (8-16); AST/SGOT 29 U/L (7-37); BILIRUBIN,TOTAL 0.8 MG/DL (0.2-1.0); BLOOD UREA NITROGEN 12 MG/DL (7-18); CALCIUM LEVEL 9.3 MG/DL (8.5-10.1); CARBON DIOXIDE LEVEL 29 MEQ/L (21-32); CHLORIDE LEVEL 109 MEQ/L (98-107); CREATININE FOR GFR 1.35 MG/DL (0.70-1.30); GLOMERULAR FILTRATION RATE > 60.0 (>60); GLUCOSE, FASTING 84 MG/DL (70-100); LIPASE 141 U/L (73-393); POTASSIUM SERUM 4.5 MEQ/L (3.5-5.1); SODIUM LEVEL 143 MEQ/L (136-145); TOTAL PROTEIN 7.6 GM/DL (6.4-8.2)
== END ==
LOC: M WUC 10:55
DX: A09 Infectious gastroenteritis and colitis, unspecified (principal)
CPT/HCPCS: 83690

== ENCOUNTER → 2017-10-15 | Outpatient (CLI) | payer OTHER ==
[2017-10-15 10:52] LABS: FREE T4 1.04 NG/DL (0.76-1.46); THYROID STIMULATING HORMONE 0.453 uIU/ML (0.358-3.740)
== END ==
LOC: M LAB 09:29
DX: E89.0 Postprocedural hypothyroidism (principal)
CPT/HCPCS: 84443

== ENCOUNTER → 2017-11-07 | Outpatient (REF) | payer OTHER ==
[2017-11-07 12:21] LABS: FREE T4 1.05 NG/DL (0.76-1.46); THYROID STIMULATING HORMONE 0.248 uIU/ML (0.358-3.740)
== END ==
LOC: M SFHCPLAZ 08:29
DX: E89.0 Postprocedural hypothyroidism (principal)
CPT/HCPCS: 84443

== ENCOUNTER → 2018-04-11 | Outpatient (REF) | payer OTHER ==
[~2018-04-11] MED LIST changes: +/TAMS4CA PO; +AVON1KIT IM; +CIPR500T89 PO; +DEPA250T32 PO; +GABA-1171 PO; +IBUP-1022 PO; +KETO10TAB PO; +MECL-68 PO; +METH10TA PO; +OMEP40CA2 PO; +PRED20TA PO; +PRIL20CA9 PO; -PROHANCE 279.3MG/ML 15ML VIAL (A9576) As Ordered; +VESI10TA PO
[2018-04-11 15:44] LABS: BASO # 0.1 10^3/uL (0.0-0.2); EOS # 0.1 10^3/uL (0.0-0.50); EOS % 2.5 % (0.0-3.0); HEMATOCRIT 47.9 % (42.0-52.0); HEMOGLOBIN 16.1 g/dl (13.5-17.5); LYMPH # 1.8 10^3/uL (1.5-4.5); LYMPH % 34.9 % (24.0-44.0); MEAN CORPUSCULAR HEMOGLOBIN 30.4 pg (27.0-33.0); MEAN CORPUSCULAR HGB CONC 33.6 g/dl (32.0-36.5); MEAN CORPUSCULAR VOLUME 90.5 fl (80.0-96.0); MONO # 0.5 10^3/uL (0.0-0.8); MONO % 9.4 % (0.0-5.0); NEUTROPHILS # 2.6 10^3/uL (1.8-7.7); NEUTROPHILS % 51.8 % (36.0-66.0); PLATELET COUNT, AUTOMATED 212 10^3/uL (150-450); RED BLOOD COUNT 5.29 10^6/uL (4.30-6.10); WHITE BLOOD COUNT 5.1 10^3/uL (4.0-10.0)
[2018-04-11 17:01] LABS: HIV 1&2 SCREEN CENTAUR NEGATIVE (NEGATIVE)
[2018-04-11 19:27] LABS: APPEARANCE, URINE CLEAR (CLEAR); BACTERIA, URINE AUTO NEGATIVE (NEGATIVE); BILIRUBIN, URINE AUTO NEGATIVE (NEGATIVE); BLOOD, URINE BLOOD NEGATIVE (NEGATIVE); COLOR, URINE YELLOW (YELLOW); GLUCOSE, URINE (UA) AUTO NEGATIVE (NEGATIVE); KETONE, URINE AUTO NEGATIVE (NEGATIVE); LEUKOCYTE ESTERASE, URINE AUTO NEGATIVE (NEGATIVE); MUCUS, URINE SMALL (NEGATIVE); NITRITE, URINE AUTO NEGATIVE (NEGATIVE); PROTEIN, URINE AUTO NEGATIVE (NEGATIVE); RBC, URINE AUTO 0 /HPF (0-3); SPECIFIC GRAVITY URINE AUTO 1.018 (1.002-1.035); SQUAMOUS EPITHELIAL CELL UR AU 0 /HPF (0-6); UROBILINOGEN, URINE AUTO 0.2 mg/dL (0.0-2.0); WBC, URINE AUTO 2 /HPF (0-3)
[2018-04-11 20:55] LABS: CHLAMYDIA DNA AMPLIFICATION NEGATIVE (NEGATIVE); GC DNA AMPLIFICATION NEGATIVE (NEGATIVE)
[2018-04-14 00:07] LABS: ARSENIC 5 ug/L (2-23); MERCURY LEVEL None Detected ug/L (0.0-14.9)
== END ==
LOC: M SFHCPLAZ 14:26
PROVIDERS: ATTEND Family Medicine
DX: Z77.098 Contact with and (suspected) exposure to other hazardous, chiefly nonmedicinal, chemicals (principal); R68.89 Other general symptoms and signs; Z20.2 Contact with and (suspected) exposure to infections with a predominantly sexual mode of transmission; R31.0 Gross hematuria

== ENCOUNTER → 2018-04-16 | Outpatient (CLI) | payer OTHER ==
[2018-04-16 13:49] LABS: APPEARANCE, URINE CLEAR (CLEAR); BACTERIA, URINE AUTO NEGATIVE (NEGATIVE); BILIRUBIN, URINE AUTO NEGATIVE (NEGATIVE); BLOOD, URINE BLOOD NEGATIVE (NEGATIVE); COLOR, URINE YELLOW (YELLOW); GLUCOSE, URINE (UA) AUTO NEGATIVE (NEGATIVE); KETONE, URINE AUTO NEGATIVE (NEGATIVE); LEUKOCYTE ESTERASE, URINE AUTO NEGATIVE (NEGATIVE); MUCUS, URINE SMALL (NEGATIVE); NITRITE, URINE AUTO NEGATIVE (NEGATIVE); PROTEIN, URINE AUTO NEGATIVE (NEGATIVE); RBC, URINE AUTO 0 /HPF (0-3); SPECIFIC GRAVITY URINE AUTO 1.019 (1.002-1.035); SQUAMOUS EPITHELIAL CELL UR AU 0 /HPF (0-6); UROBILINOGEN, URINE AUTO 0.2 mg/dL (0.0-2.0); WBC, URINE AUTO 0 /HPF (0-3)
[2018-04-16 13:50] LABS: BLOOD UREA NITROGEN 13 MG/DL (7-18); CALCIUM LEVEL 9.2 MG/DL (8.5-10.1); CARBON DIOXIDE LEVEL 28 MEQ/L (21-32); CHLORIDE LEVEL 108 MEQ/L (98-107); CREATININE FOR GFR 1.11 MG/DL (0.70-1.30); GLOMERULAR FILTRATION RATE > 60.0 (>60); GLUCOSE, FASTING 93 MG/DL (70-100); POTASSIUM SERUM 4.5 MEQ/L (3.5-5.1); SODIUM LEVEL 142 MEQ/L (136-145)
== END ==
LOC: M SMT 09:46
PROVIDERS: ATTEND Nurse Practitioner Women's Health
DX: R31.0 Gross hematuria (principal)

== ENCOUNTER → 2018-05-03 | Outpatient (CLI) | payer OTHER ==
[~2018-05-03] MED LIST changes: +ISOVUE-370 76% 100ML VIAL (Q9967) As Ordered ONE
--- NOTE | 2018-05-03 20:26 | REP ---
Clinical: Gross hematuria. Technique: Axial precontrast, contrast enhanced, and delayed images of the abdomen and pelvis using 100 ml Isovue 370 intravenous contrast material with coronal and sagittal re-formations. Findings: Evaluation of the urinary tract system demonstrates normal kidneys, ureters, and bladder. There is no evidence for hydroureteronephrosis, nephroureterolithiasis, cystic or renal mass lesion. Liver, spleen, pancreas, gallbladder, and bilateral adrenal glands are normal. The enteric system is without obstruction or acute inflammatory process. Pelvis demonstrates normal bladder and age-appropriate prostate/seminal vesicles. No ascites. No free air. No significant intraperitoneal or retroperitoneal adenopathy. Abdominal aorta is normal. Incidental circumaortic left renal veins identified. Osseous structures demonstrate age-related changes without focal osseous abnormality. Impression: 1. Normal urinary tract system. 2. No acute abdominopelvic pathology appreciated. 3. Incidental circumaortic left renal veins. Electronically Signed by Shakir Kent MD 05/03/2018 08:16 P
== END ==
LOC: M RAD 16:17
PROVIDERS: ATTEND Nurse Practitioner Women's Health
DX: R31.0 Gross hematuria (principal)
CPT/HCPCS: 74178; Q9967

== ENCOUNTER → 2018-05-17 | Outpatient (REF) | payer OTHER ==
[~2018-05-17] MED LIST changes: -ISOVUE-370 76% 100ML VIAL (Q9967) As Ordered ONE
[2018-05-17 13:16] LABS: FREE T4 1.07 NG/DL (0.76-1.46); THYROID STIMULATING HORMONE 0.777 uIU/ML (0.358-3.740)
== END ==
LOC: M LABDRAW1 11:16
PROVIDERS: ATTEND Nurse Practitioner Family
DX: E89.0 Postprocedural hypothyroidism (principal)

== ENCOUNTER → 2018-08-28 | Outpatient (CLI) | payer OTHER ==
[~2018-08-28] MED LIST changes: -/TAMS4CA PO; +FLOM0.4C39 PO; +LEVO112T2 PO; -MECL-68 PO; +MECL1TAB31 PO; +PROHANCE 279.3MG/ML 15ML VIAL (A9576) As Ordered ONE; +PROHANCE 279.3MG/ML 5ML VIAL (A9576) As Ordered ONE; +ZOFR4TAB16 PO
--- NOTE | 2018-08-28 13:39 | REPVR ---
EXAM: MR Cervical Spine Without and With Contrast EXAM DATE/TIME: 08/28/2018 9:26 AM CLINICAL HISTORY: 47 years old, male; Condition or disease; Other: Ms; Additional info: Multiple sclerosis TECHNIQUE: Imaging protocol: Multiplanar magnetic resonance images of the cervical spine without and with intravenous contrast. Contrast material: PROHANCE; Contrast volume: 16 ml; Contrast route: IV; COMPARISON: MRI C-SPINE W/ & W/O CONTRAST - OUTSIDE PRIOR 08/28/2017 12:00 AM FINDINGS: Vertebrae: There is a hemangioma in the right C2 lateral mass. 2 mm of degenerative retrolisthesis of C5 on C6. No acute fracture seen. Spinal cord: No new foci of cervical cord demyelination identified since the prior study. Subtle cervical cord lesion is again identified on the T2 weighted imaging: posterior cord at C3 level, right lateral cord at C5 level, patchy essentially contiguous lesion within the central cord at the C6 and C7 levels. No enhancing cord lesions to represent active demyelination. Disc desiccation throughout. Disc height loss and spondylosis is marked at C5-6. Mild prevertebral spondylosis at C4-5. No significant interval change in the appearance of degenerative disc disease based on the sagittal T2-weighted imaging since the prior study. C2-C3: No significant disc disease. No significant spinal stenosis. C3-C4: No significant interval change. Mild disc bulge without stenoses. C4-C5: No significant interval change. Mild disc bulge and slight ligamentum flavum buckling without stenoses. C5-C6: No significant interval change. Trace retrolisthesis. Posterior disc osteophyte complex and ligamentum flavum buckling. Central spinal canal stenosis is mild. Uncovertebral and facet arthropathy causing mild bilateral neural foraminal stenoses C6-C7: No significant interval change. No stenoses. C7-T1: No significant interval change. No stenoses. Soft tissues: Unremarkable. IMPRESSION: 1. No significant interval change. No evidence of active demyelination. 2. Subtle cervical cord lesions again seen at several levels in keeping with the provided history of multiple sclerosis. Electronically signed by: Jyotsna Diaz On 08/28/2018 13:39:06 PM
--- NOTE | 2018-08-28 14:00 | REPVR ---
EXAM: MR Head Without and With Contrast EXAM DATE/TIME: 08/28/2018 9:26 AM CLINICAL HISTORY: 47 years old, male; Condition or disease; Multiple sclerosis TECHNIQUE: Imaging protocol: MR of the head without and with intravenous contrast. Contrast material: PROHANCE; Contrast volume: 16 ml; Contrast route: IV; COMPARISON: MRI BRAIN W/ & W/O CONTRAST - OUTSIDE PRIOR 08/28/2017 12:00 AM FINDINGS: Brain: No convincing foci of true diffusion restriction. A few punctate foci of equivocal signal at the cerebral convexities on the DWI sequence appearing isointense on the ADC map likely related to artifact or T2 shine through. The T2-weighted imaging demonstrates T2 hyperintense lesions in the callosal and pericallosal as well as periventricular white matter. Some of these lesions appeared elongated in morphology arising perpendicular to the ependymal surfaces of the ventricles extending in a perivenular distribution, not specific although consistent with the provided diagnosis of multiple sclerosis. New lesions in the splenium and anterior body of the corpus callosum. There are a few new small lesions in the right clemens radiata deep white matter. There are a few scattered subcortical white matter lesions at the cerebral convexities, as before. Small lesions in the left thalamus extending to midbrain, also at the left pontomedullary junction. The left pontomedullary junction lesion is unchanged. The thalamic lesion is either new, more conspicuous or better visualized due to technique. No enhancing lesions identified. Mild cerebral and cerebellar volume loss, prominent for age, unchanged. Ventricles: Stable. Bones/joints: Unremarkable. Soft tissues: Normal. Sinuses: Trace ethmoid sinus mucosal thickening. There is a retention cyst or polyp in the right maxillary sinus. Mastoid air cells: Normal as visualized. No mastoid effusion. Orbits: Unremarkable. IMPRESSION: 1. Findings consistent with the provided history of multiple sclerosis. 2. No evidence of active demyelination. 3. A few new foci of demyelination since the prior study Electronically signed by: Jyotsna Diaz On 08/28/2018 14:00:42 PM
== END ==
LOC: M RAD 07:38
PROVIDERS: ATTEND Physician Assistant
DX: G35 Multiple sclerosis (principal)
CPT/HCPCS: 70553; 72156; A9576

== ENCOUNTER → 2018-09-12 | Outpatient (CLI) | payer OTHER ==
[~2018-09-12] MED LIST changes: +MECL-68 PO; -MECL1TAB31 PO; -PROHANCE 279.3MG/ML 15ML VIAL (A9576) As Ordered ONE; -PROHANCE 279.3MG/ML 5ML VIAL (A9576) As Ordered ONE
[2018-09-12 10:19] LABS: FREE T4 0.88 NG/DL (0.76-1.46); THYROID STIMULATING HORMONE 1.57 uIU/ML (0.358-3.740)
== END ==
LOC: M LAB 08:31
PROVIDERS: ATTEND Internal Medicine Endocrinology, Diabetes & Metabolism
DX: E89.0 Postprocedural hypothyroidism (principal)

== ENCOUNTER → 2018-09-12 | Outpatient (CLI) | payer OTHER | LOC: M LAB 13:22 | PROVIDERS: ATTEND Family Medicine | DX: Z11.1 Encounter for screening for respiratory tuberculosis (principal) ==

== ENCOUNTER 2018-09-16 21:44 | Emergency (ER) | payer OTHER ==
[~2018-09-16] VITALS: Ht 182.9 cm; Wt 85.5 kg
[~2018-09-16 21:44] MED LIST changes: -ZOFR4TAB16 PO
[2018-09-17] MEDS ORDERED: MECLIZINE 25 MG TABLET PO ONE (02:15)
[2018-09-17] MEDS ORDERED: NS 1,000 ML IV ONE (02:15)
[2018-09-17 02:23] LABS: BASO % 0.1 % (0.0-1.0); EOS # 0.1 10^3/uL (0.0-0.50); EOS % 1.1 % (0.0-3.0); HEMATOCRIT 45.6 % (42.0-52.0); LYMPH % 37.1 % (24.0-44.0); MEAN CORPUSCULAR HEMOGLOBIN 30.1 pg (27.0-33.0); MEAN CORPUSCULAR HGB CONC 32.9 g/dl (32.0-36.5); MEAN CORPUSCULAR VOLUME 91.6 fl (80.0-96.0); MONO # 0.6 10^3/uL (0.0-0.8); MONO % 7.4 % (0.0-5.0); NEUTROPHILS # 4.3 10^3/uL (1.8-7.7); NEUTROPHILS % 53.9 % (36.0-66.0); PLATELET COUNT, AUTOMATED 205 10^3/uL (150-450); RED BLOOD COUNT 4.98 10^6/uL (4.30-6.10)
[2018-09-17] MEDS ORDERED: ZOFR4TAB16 PO (03:02)
[2018-09-17] MEDS ORDERED: MECL-68 PO (03:02)
[2018-09-17 03:42] VITALS: BP 132/72
== END 2018-09-17 03:50 | disposition home or self-care (01) ==
LOC: M ED 21:44
DX: G35 Multiple sclerosis (principal); R11.0 Nausea; E05.90 Thyrotoxicosis, unspecified without thyrotoxic crisis or storm; E83.42 Hypomagnesemia; E87.6 Hypokalemia; Z88.5 Allergy status to narcotic agent; Z88.6 Allergy status to analgesic agent; Z88.8 Allergy status to other drugs, medicaments and biological substances; Z79.899 Other long term (current) drug therapy

== ENCOUNTER 2018-11-02 13:57 | Emergency (ER) | payer OTHER ==
[~2018-11-02] VITALS: Ht 182.9 cm; Wt 88.7 kg
[~2018-11-02 13:57] MED LIST changes: +ZOFR4TAB16 PO
[2018-11-02] MEDS ORDERED: KETOROLAC 30 MG/ML VIAL (J1885) IV ONE (15:00)
[2018-11-02] MEDS ORDERED: NS 1,000 ML IV ONE (15:00)
[2018-11-02] MEDS ORDERED: ONDANSETRON 4MG/2ML VIAL (J2405) IV ONE (15:00)
[2018-11-02 15:35] LABS: BASO # 0.1 10^3/uL (0.0-0.2); EOS # 0.2 10^3/uL (0.0-0.5); EOS % 3.2 % (0.0-3.0); HEMATOCRIT 41.3 % (42.0-52.0); HEMOGLOBIN 13.8 g/dl (13.5-17.5); LYMPH # 0.9 10^3/uL (1.5-5.0); LYMPH % 18.9 % (24.0-44.0); MEAN CORPUSCULAR HEMOGLOBIN 29.9 pg (27.0-33.0); MEAN CORPUSCULAR HGB CONC 33.4 g/dl (32.0-36.5); MEAN CORPUSCULAR VOLUME 89.6 fl (80.0-96.0); MONO # 0.6 10^3/uL (0.0-0.8); MONO % 11.5 % (0.0-5.0); NEUTROPHILS # 3.2 10^3/uL (1.5-8.5); PLATELET COUNT, AUTOMATED 181 10^3/uL (150-450); RED BLOOD COUNT 4.61 10^6/uL (4.30-6.10)
[2018-11-02 15:57] LABS: ALBUMIN 3.8 GM/DL (3.2-5.2); ALT/SGPT 34 U/L (12-78); BILIRUBIN,DIRECT < 0.1 MG/DL (0.0-0.2); BILIRUBIN,TOTAL 0.4 MG/DL (0.2-1.0); BLOOD UREA NITROGEN 18 MG/DL (7-18); CALCIUM LEVEL 9.1 MG/DL (8.5-10.1); CARBON DIOXIDE LEVEL 29 MEQ/L (21-32); CHLORIDE LEVEL 110 MEQ/L (98-107); CREATININE FOR GFR 1.24 MG/DL (0.70-1.30); FREE T4 0.85 NG/DL (0.76-1.46); GLOMERULAR FILTRATION RATE > 60.0 (>60); GLUCOSE, FASTING 88 MG/DL (70-100); MAGNESIUM LEVEL 2.2 MG/DL (1.8-2.4); POTASSIUM SERUM 3.7 MEQ/L (3.5-5.1); SODIUM LEVEL 144 MEQ/L (136-145); TOTAL PROTEIN 6.7 GM/DL (6.4-8.2)
[2018-11-02 20:35] VITALS: BP 126/75
--- NOTE | 2018-11-06 06:54 | ECGEPIP ---
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
== END 2018-11-02 20:42 | disposition short-term general hospital (02) ==
LOC: M ED 13:57
DX: R51 Headache (principal); G35 Multiple sclerosis; R53.1 Weakness; E05.90 Thyrotoxicosis, unspecified without thyrotoxic crisis or storm; E87.6 Hypokalemia; Z88.5 Allergy status to narcotic agent; Z88.8 Allergy status to other drugs, medicaments and biological substances; Z96.0 Presence of urogenital implants
CPT/HCPCS: 80048; 80076; 83735; 84439; 84443; 85025; 93005; 96374; 96375; 99285; J1885; J2405

== ENCOUNTER → 2018-11-26 | Outpatient (CLI) | payer OTHER ==
[2018-11-26 10:25] LABS: BLOOD UREA NITROGEN 14 MG/DL (7-18); CALCIUM LEVEL 8.9 MG/DL (8.5-10.1); CARBON DIOXIDE LEVEL 26 MEQ/L (21-32); CHLORIDE LEVEL 109 MEQ/L (98-107); CREATININE FOR GFR 1.16 MG/DL (0.70-1.30); GLOMERULAR FILTRATION RATE > 60.0 (>60); GLUCOSE, FASTING 91 MG/DL (70-100); POTASSIUM SERUM 3.9 MEQ/L (3.5-5.1); SODIUM LEVEL 143 MEQ/L (136-145)
[2018-11-26 10:27] LABS: HEMOGLOBIN A1c 5.1 %
[2018-11-26 10:40] LABS: CORTISOL AM 18.3 UG/DL (4.3-22.4)
== END ==
LOC: M LAB 09:06
PROVIDERS: ATTEND Family Medicine
DX: E16.2 Hypoglycemia, unspecified (principal)

== ENCOUNTER → 2018-11-26 | Outpatient (CLI) | payer OTHER ==
[2018-11-26 10:36] LABS: FREE T4 0.79 NG/DL (0.76-1.46); THYROID STIMULATING HORMONE 15.6 uIU/ML (0.358-3.740)
== END ==
LOC: M LAB 08:50
PROVIDERS: ATTEND Nurse Practitioner Family
DX: E89.0 Postprocedural hypothyroidism (principal)

== ENCOUNTER 2019-04-09 09:27 | Emergency (ER) | payer MEDICAID, OTHER, SELFPAY ==
[~2019-04-09] VITALS: Ht 182.9 cm; Wt 89.2 kg
[~2019-04-09 09:27] MED LIST changes: -MECL-68 PO; +MECL1TAB31 PO
--- NOTE | 2019-04-09 11:22 | REP ---
Clinical: Trauma. Fall. Technique: AP, lateral, swimmers views of the cervical spine. Findings: Focal degenerative changes at C5-6. Alignment maintained. No acute fracture / compression injury or subluxation. Impression: Acute fracture / compression injury or subluxation. Electronically Signed by Shakir Kent MD 04/09/2019 11:13 A
--- NOTE | 2019-04-09 11:23 | REP ---
Clinical: Trauma. Fall. Technique: AP, lateral, coned-down views of the lumbosacral spine. Findings: Alignment and lordosis maintained. Generalized age-related changes. No acute fracture / compression injury or subluxation. Impression: No acute fracture / compression injury or subluxation. Electronically Signed by Shakir Kent MD 04/09/2019 11:14 A
--- NOTE | 2019-04-09 11:23 | REP ---
Clinical: thoracic pain. Fall. Technique: AP, lateral views of the thoracic spine. Findings: Alignment and kyphosis is maintained. Vertebral bodies intact. No acute fracture / compression injury or subluxation. No degenerative changes. Paravertebral soft tissues are normal. Impression: Normal thoracic spine series. Electronically Signed by Shakir Kent MD 04/09/2019 11:13 A
[2019-04-09] MEDS ORDERED: KETOROLAC 60 MG/2 ML VIAL (J1885) IM ONE (11:45)
[2019-04-09] MEDS ORDERED: KETO10TAB PO (13:47)
[2019-04-09 13:54] VITALS: BP 115/75
== END 2019-04-09 13:57 | disposition home or self-care (01) ==
LOC: M ED 09:27
DX: S39.012A Strain of muscle, fascia and tendon of lower back, initial encounter (principal); S16.1XXA Strain of muscle, fascia and tendon at neck level, initial encounter; Y92.9 Unspecified place or not applicable; Y93.9 Activity, unspecified; Y99.9 Unspecified external cause status; G35 Multiple sclerosis; Z79.899 Other long term (current) drug therapy; Z88.6 Allergy status to analgesic agent; Z88.8 Allergy status to other drugs, medicaments and biological substances
CPT/HCPCS: 72040; 72070; 72110; 96372; 99283; J1885

== ENCOUNTER → 2020-03-27 | Outpatient (CLI) | payer OTHER ==
[2020-03-27 13:42] LABS: BASO # 0.1 10^3/uL (0.0-0.2); BASO % 1.1 % (0.0-1.0); EOS # 0.2 10^3/uL (0.0-0.5); EOS % 3.7 % (0.0-3.0); HEMATOCRIT 44.5 % (42.0-52.0); HEMOGLOBIN 14.6 g/dl (13.5-17.5); LYMPH # 1.8 10^3/uL (1.5-5.0); LYMPH % 33.8 % (24.0-44.0); MEAN CORPUSCULAR HEMOGLOBIN 31.1 pg (27.0-33.0); MEAN CORPUSCULAR HGB CONC 32.8 g/dl (32.0-36.5); MEAN CORPUSCULAR VOLUME 94.7 fl (80.0-96.0); MONO # 0.4 10^3/uL (0.0-0.8); MONO % 6.9 % (0.0-5.0); NEUTROPHILS # 2.9 10^3/uL (1.5-8.5); NEUTROPHILS % 54.3 % (36.0-66.0); PLATELET COUNT, AUTOMATED 192 10^3/uL (150-450); WHITE BLOOD COUNT 5.4 10^3/uL (4.0-10.0)
[2020-03-27 14:00] LABS: ALBUMIN 4.8 GM/DL (3.2-5.2); BILIRUBIN,TOTAL 0.5 MG/DL (0.2-1.0); C REACTIVE PROTEIN QUANTITATIV 0.3 MG/DL (0.00-0.30); CALCIUM LEVEL 9.9 MG/DL (8.5-10.1); CHOLESTEROL RISK RATIO 6.375 (<5); CREATININE FOR GFR 1.87 MG/DL (0.70-1.30); GLOMERULAR FILTRATION RATE 41.2 (>60); POTASSIUM SERUM 4.5 MEQ/L (3.5-5.1); TOTAL PROTEIN 7.8 GM/DL (6.4-8.2)
[2020-03-27 14:21] LABS: FREE T4 0.29 NG/DL (0.76-1.46); THYROID STIMULATING HORMONE 85.1 uIU/ML (0.358-3.740)
--- NOTE | 2020-03-27 18:35 | REPPI ---
INDICATION: R10.32 LEFT LOWER QUADRANT PAIN. COMPARISON: None. TECHNIQUE: Supine KUB. Two views presented. FINDINGS: Psoas margins and flank stripes are intact. Bowel gas pattern is normal. There are phleboliths in the pelvis. No urinary tract calculus is seen. No mass or organomegaly is seen. Bowel gas pattern is unremarkable. No bony abnormality. IMPRESSION: Negative KUB. <Electronically signed by Dilan Barrera > 03/27/20 [id number]
== END ==
LOC: M PLAIMG 10:58
PROVIDERS: ATTEND Nurse Practitioner Family
DX: R10.32 Left lower quadrant pain (principal); E78.2 Mixed hyperlipidemia; E89.0 Postprocedural hypothyroidism

== ENCOUNTER → 2020-04-21 | Outpatient (REF) | payer OTHER ==
[2020-04-21 13:59] LABS: ALBUMIN 4.3 GM/DL (3.2-5.2); CALCIUM LEVEL 9.3 MG/DL (8.5-10.1); CREATININE FOR GFR 1.48 MG/DL (0.70-1.30); PHOSPHORUS LEVEL 2.8 MG/DL (2.5-4.9); POTASSIUM SERUM 4.5 MEQ/L (3.5-5.1)
== END ==
LOC: M PLALAB 10:43
PROVIDERS: ATTEND Nurse Practitioner Family
DX: N28.9 Disorder of kidney and ureter, unspecified (principal)

== ENCOUNTER → 2020-06-19 | Outpatient (CLI) | payer OTHER ==
[2020-06-19 10:46] LABS: FREE T4 1.07 NG/DL (0.76-1.46); THYROID STIMULATING HORMONE 10.5 uIU/ML (0.358-3.740)
== END ==
LOC: M PLALAB 08:13
PROVIDERS: ATTEND Nurse Practitioner Family
DX: E89.0 Postprocedural hypothyroidism (principal)

== ENCOUNTER → 2020-06-19 | Outpatient (REF) | payer OTHER ==
[2020-06-19 10:36] LABS: ALBUMIN 4.1 GM/DL (3.2-5.2); ALT/SGPT 31 U/L (12-78); BILIRUBIN,TOTAL 0.5 MG/DL (0.2-1.0); BLOOD UREA NITROGEN 15 MG/DL (7-18); CARBON DIOXIDE LEVEL 27 MEQ/L (21-32); CHLORIDE LEVEL 109 MEQ/L (98-107); CHOLESTEROL LEVEL 213 MG/DL (<200); CHOLESTEROL RISK RATIO 5.195 (<5); CREATININE FOR GFR 1.24 MG/DL (0.70-1.30); GLOMERULAR FILTRATION RATE > 60.0 (>60); GLUCOSE, FASTING 97 MG/DL (70-100); HDL CHOLESTEROL 41 MG/DL (>40); LDL CHOLESTEROL 144 MG/DL (<100); NON-HDL-C 172 MG/DL; POTASSIUM SERUM 4.3 MEQ/L (3.5-5.1); SODIUM LEVEL 142 MEQ/L (136-145); TOTAL PROTEIN 7.3 GM/DL (6.4-8.2); TRIGLYCERIDES LEVEL 142 MG/DL (<150)
== END ==
LOC: M PLALAB 08:13
PROVIDERS: ATTEND Nurse Practitioner Family
DX: E78.2 Mixed hyperlipidemia (principal); N28.9 Disorder of kidney and ureter, unspecified

== ENCOUNTER → 2020-09-02 | Outpatient (CLI) | payer OTHER ==
[2020-09-02 10:44] LABS: FREE T4 1.33 NG/DL (0.76-1.46); THYROID STIMULATING HORMONE 0.899 uIU/ML (0.358-3.740)
== END ==
LOC: M PLALAB 08:06
PROVIDERS: ATTEND Nurse Practitioner Family
DX: E89.0 Postprocedural hypothyroidism (principal)

== ENCOUNTER → 2020-11-09 | Outpatient (CLI) | payer OTHER ==
[2020-11-09 19:49] LABS: ALT/SGPT 57 U/L (12-78); BILIRUBIN,TOTAL 0.4 MG/DL (0.2-1.0); BLOOD UREA NITROGEN 10 MG/DL (7-18); CALCIUM LEVEL 9.5 MG/DL (8.5-10.1); CARBON DIOXIDE LEVEL 28 MEQ/L (21-32); CHLORIDE LEVEL 110 MEQ/L (98-107); CHOLESTEROL LEVEL 239 MG/DL (<200); CHOLESTEROL RISK RATIO 6.289 (<5); CREATININE FOR GFR 1.09 MG/DL (0.70-1.30); GLOMERULAR FILTRATION RATE > 60.0 (>60); GLUCOSE, FASTING 94 MG/DL (70-100); HDL CHOLESTEROL 38 MG/DL (>40); LDL CHOLESTEROL 144 MG/DL (<100); NON-HDL-C 201 MG/DL; POTASSIUM SERUM 3.9 MEQ/L (3.5-5.1); SODIUM LEVEL 141 MEQ/L (136-145); TOTAL PROTEIN 7.3 GM/DL (6.4-8.2); TRIGLYCERIDES LEVEL 283 MG/DL (<150)
== END ==
LOC: M LAB 18:25
PROVIDERS: ATTEND Nurse Practitioner Family
DX: E78.2 Mixed hyperlipidemia (principal)

== ENCOUNTER → 2020-11-09 | Outpatient (CLI) | payer OTHER ==
[2020-11-09 19:48] LABS: FREE T4 0.88 NG/DL (0.76-1.46); THYROID STIMULATING HORMONE 13.4 uIU/ML (0.358-3.740)
== END ==
LOC: M LAB 18:29
PROVIDERS: ATTEND Nurse Practitioner Family
DX: E89.0 Postprocedural hypothyroidism (principal)

== ENCOUNTER → 2020-12-28 | Outpatient (CLI) | payer OTHER ==
[2020-12-28 19:07] LABS: FREE T4 1.05 NG/DL (0.76-1.46); THYROID STIMULATING HORMONE 2.84 uIU/ML (0.358-3.740)
== END ==
LOC: M LAB 17:45
PROVIDERS: ATTEND Nurse Practitioner Family
DX: E89.0 Postprocedural hypothyroidism (principal)

== ENCOUNTER 2021-01-11 10:14 | Emergency (ER) | payer OTHER ==
[~2021-01-11] VITALS: Ht 182.9 cm; Wt 89.2 kg
[2021-01-11] MEDS ORDERED: ATOR1TAB21 (10:40)
[2021-01-11] MEDS ORDERED: BACTDSTA (10:41)
[2021-01-11] MEDS ORDERED: LEVO137T2 PO (10:41)
--- NOTE | 2021-01-11 11:29 | REP ---
INDICATION: DYSPNEA/COUGH COMPARISON: 06/22/2017 TECHNIQUE: Portable AP view of the chest FINDINGS: Subtle left lower lobe airspace disease is suggested and should be correlated clinically. No obvious effusion. No pneumothorax. Mediastinum and cardiac silhouette within normal limits. IMPRESSION: Left lower lobe airspace disease. Follow-up to resolution recommended. <Electronically signed by Shakir Kent > 01/11/21 1121
[2021-01-11 11:36] LABS: VENOUS BASE EXCESS -2.3 (-2.0-2.0); VENOUS HCO3 20.5 MEQ/L (23.0-27.0); VENOUS O2 SATURATION 75.2 % (60.0-80.0); VENOUS PARTIAL PRESSURE CO2 30.8 mmHg (38.0-50.0); VENOUS PH 7.441 UNITS (7.330-7.430); VENOUS TOTAL CO2 21.4 MEQ/L (24.0-28.0)
[2021-01-11 11:50] LABS: BASO % 0.4 % (0.0-1.0); HEMATOCRIT 46.6 % (42.0-52.0); HEMOGLOBIN 15.9 g/dl (13.5-17.5); LYMPH # 0.9 10^3/uL (1.5-5.0); LYMPH % 19.8 % (24.0-44.0); MEAN CORPUSCULAR HEMOGLOBIN 29.4 pg (27.0-33.0); MEAN CORPUSCULAR HGB CONC 34.1 g/dl (32.0-36.5); MEAN CORPUSCULAR VOLUME 86.3 fl (80.0-96.0); MONO # 0.4 10^3/uL (0.0-0.8); MONO % 9.4 % (2.0-8.0); NEUTROPHILS # 3.2 10^3/uL (1.5-8.5); PLATELET COUNT, AUTOMATED 115 10^3/uL (150-450); WHITE BLOOD COUNT 4.6 10^3/uL (4.0-10.0)
[2021-01-11 12:09] LABS: ALBUMIN 3.7 GM/DL (3.2-5.2); BILIRUBIN,DIRECT 0.2 MG/DL (0.0-0.2); BILIRUBIN,TOTAL 0.8 MG/DL (0.2-1.0); CALCIUM LEVEL 8.6 MG/DL (8.5-10.1); CREATININE FOR GFR 1.51 MG/DL (0.70-1.30); GLOMERULAR FILTRATION RATE 52.5 (>60); POTASSIUM SERUM 4.5 MEQ/L (3.5-5.1); TOTAL PROTEIN 7.4 GM/DL (6.4-8.2)
[2021-01-11 12:27] LABS: CK-MB VALUE MASS < 1.0 NG/ML (<3.6); CPK CREATINE PHOSPHOKINASE 746 U/L (39-308); MB/CK RELATIVE INDEX 0.13 (< OR =4); TROPONIN I < 0.02 NG/ML (< 0.10)
[2021-01-11 14:28] VITALS: O2SAT 93
[2021-01-11] MEDS ORDERED: NS 1,000 ML IV ONE (15:10)
--- NOTE | 2021-01-11 17:06 | CR.PDOC ---
General Date of Consultation: Jan 11, 2021 Consultation REASON FOR CONSULTATION/CHIEF COMPLAINT: COVID for Monoclonal antibody infusion. HISTORY OF PRESENT ILLNESS: 50 year old patietn presented to ED for extreme generalized weakness, malaise, cough, cold, nausea and diarrhea. His symptoms started 10 days ago when he felt suddenly very dizzy and weak and nauseaseous then he started coughing constantly. He was very weak and tired and could not lift things that he has to at work went to urgent care 8 days ago. He has a nasal swab done which was negative for COVID. He wasdiagnosed with URI and started on antibiotics. He then developed diarrhea though was related to antibiotics so called the urgent care and antibiotic was changed however continued to feelsick with nausea, diarrhea, severe weakness.He reports that he could mcmahon lft his left leg which is his weak leg from MS. He had difficulty ambulating. His cough was getting better however he continued to feel sick so came to the ED. In [facility] ED he was found to Have COVID-19 infection with ROCIO. ALLERGIES: Please see below. HOME MEDICATIONS: Please see below. PAST MEDICAL HISTORY: GERD COSTOCHONDRITIS KIDNEY STONES BONE SPUR RIGHT HEEL MS- 08/2018 MRI BRAIN C LESION F/U C UPSTATE OCREVUS INFUSION MIGRAINES MIXED HYPERLIPIDEMIA POST ABLATIVE HYPOTHYROIDISM PAST SURGICAL HISTORY: LT KNEE MENISCUS REPAIR DOUBLE JJ STENT PLACEMENT 03/2013 RIGHT ESWL 05/02/13 VASECTOMY 2016 FAMILY HISTORY FATHER: OF PE MOTHER: NO KNOWN MEDICAL PROBLEMS PATERNAL GRAND FATHER: EMPHYSEMA, ASTHMA, HEART DISEASE PATERNAL GRAND MOTHER: PARKINSONS MATERNAL GRAND FATHER: HEART DISEASE MATERNAL GRAND MOTHER: DIABETES SOCIAL HISTORY: Non smoker, No alcohol useor drug use. REVIEW OF SYSTEMS: CONSTITUTIONAL: Malaise, weakness, chills HEENT: nasal congestion, cold CARDIOVASCULAR: deneis chest pain RESPIRATORY: Cough and SOB GENITOURINARY: denies any dysuria MUSCULOSKELETAL: bodyaches. GASTROINTESTINAL: diarrhea, nausea, poor appetite NEUROLOGICAL: Severe weakness of left leg, also numbness, weakness and tingling of both hands. PSYCHIATRIC: Anxious. PHYSICAL EXAMINATION: VITAL SIGNS: Please see below. GENERAL APPEARANCE: Awake, alert, oriented x 3 HEENT: Normocephalic, atraumatic, RESPIRATORY: Bilateral crackles at the bases, dimished air entry CARDIOVASCULAR: S1, S2 regular, no rub, murmur or gallop ABDOMEN: soft Nontender, sowel sounds normal EXTREMITIES: No edema. NEUROLOGICAL: 3/5 power in left lower extremity, other extremitas 5/5 power. LABORATORY DATA: Please see below. ASSESSMENT/PLAN: 50 year old male with Multiple sclerosis has been sick with respiratory symptoms for the past 10 days. He did not have any hypoxia. Found to have COVID infection. He was appropriate for Monoclonal antibody. patient consented. 1. COVID -19 infection for Monoclonal antibody infusion. 2. ROCIO: Due to poor oral intake and diarrhea. Given 1 liter of IVF in ED. 3.Transaminitis: Due to COVID infection. Vital Signs/I&O Vital Signs Date Time Temp Pulse Resp B/P (MAP) Pulse Ox O2 Delivery O2 Flow Rate FiO2 01/11/21 14:28 93 Room Air 01/11/21 10:44 28 01/11/21 10:16 97.7 102 118/69 (85) Laboratory Data Labs 24H Laboratory Tests 2 01/11/21 11:02: Immature Granulocyte % (Auto) 0.4, Neutrophils (%) (Auto) 70.0H, Lymphocytes (%) (Auto) 19.8L, Monocytes (%) (Auto) 9.4H, Eosinophils (%) (Auto) 0.0, Basophils (%) (Auto) 0.4, Neutrophils # (Auto) 3.2, Lymphocytes # (Auto) 0.9L, Monocytes # (Auto) 0.4, Eosinophils # (Auto) 0.0, Basophils # (Auto) 0.0, Nucleated Red Blood Cells % (auto) 0.0, Blood Gas Bicarbonate Standard 22.0, Venous Blood pH 7.441H, Venous Blood Partial Pressure CO2 30.8L, Venous Blood Partial Pressure O2 37.0, Venous Blood Total Carbon Dioxide 21.4L, Venous Blood HCO3 20.5L, Venous Blood Oxygen Saturation 75.2, Venous Blood Base Excess -2.3L, Anion Gap 11, Glomerular Filtration Rate 52.5L, Lactic Acid Level 1.1, Calcium Level 8.6, Total Bilirubin 0.8, Direct Bilirubin 0.2, Aspartate Amino Transf (AST/SGOT) 83H, Alanine Aminotransferase (ALT/SGPT) 82H, Alkaline Phosphatase 66, Total Creatine Kinase 746H, Creatine Kinase MB < 1.0, Creatine Kinase MB Relative Index 0.13, Troponin I < 0.02, [id number]-Type Natriuretic Peptide 20, Total Protein 7.4, Albumin 3.7, Albumin/Globulin Ratio 1.0 CBC/BMP Laboratory Tests 01/11/21 11:02 Microbiology Microbiology 01/11/21 Respiratory Virus Panel (PCR) ([facility]) - Final, Complete SARS-CoV-2 (COVID 19) 01/11/21 Blood Culture, Received Pending 01/11/21 Blood Culture, Received Pending Allergies Coded Allergies: dimethyl fumarate (Verified Allergy, Severe, THroat swelling, hives, 01/11/21) propranolol (Verified Allergy, Mild, 01/11/21) acetaminophen (Verified Allergy, Unknown, 01/11/21) hydrocodone (Verified Allergy, Unknown, 01/11/21) oxycodone (Verified Allergy, Unknown, 01/11/21) propoxyphene (Verified Allergy, Unknown, 01/11/21) tramadol (Verified Allergy, Unknown, 01/11/21) interferon beta-1a (Verified Adverse Reaction, Severe, fever for months, paralysis, 01/11/21) Home Medications Scheduled Levothyroxine Sodium (Levothyroxine Sodium) 137 Mcg Tablet, 1 TAB PO DAILY, (Reported) Miscellaneous Medications Atorvastatin Calcium (Atorvastatin Calcium) 20 Mg Tablet, (Reported) Sulfamethoxazole/Trimethoprim (Sulfamethoxazole-Tmp Ds Tablet) 1 Each Tablet, (Reported) Fatemeh Bueno MD Jan 11, 2021 17:06
[2021-01-11 18:00] VITALS: BP 114/72
--- NOTE | 2021-01-11 18:33 | ECGEPIP ---
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
--- NOTE | 2021-01-12 19:51 | ED PDOC ---
Post-Departure Follow-Up radiology repor tfaxed to ladan mcneal Sarah MD Jan 12, 2021 19:51
== END 2021-01-11 19:24 | disposition home or self-care (01) ==
LOC: M ED 10:14
DX: U07.1 COVID-19 (principal); J12.82 Pneumonia due to coronavirus disease 2019; E78.5 Hyperlipidemia, unspecified; G35 Multiple sclerosis; Z79.890 Hormone replacement therapy; Z79.899 Other long term (current) drug therapy; Z88.8 Allergy status to other drugs, medicaments and biological substances; Z88.5 Allergy status to narcotic agent

== ENCOUNTER 2021-01-11 19:23 | Outpatient (CLI) | payer OTHER ==
[~2021-01-11] VITALS: Ht 185.4 cm; Wt 89.6 kg
[~2021-01-11 19:23] MED LIST changes: +ACETAMINOPHEN TAB 650MG DOSE (2X325MG) PO PRN; +ALBUTEROL 90 MCG/ACT 8GM HFA INHALER INH PRN; +ALBUTEROL SULFATE 2.5 MG/0.5 ML INH NEB SOLN INH PRN; +ATOR1TAB21; +BACTDSTA; +CASIRIVIMAB/IMDEVIMAB 1,200 MG in NS 250 ML IV ONE; +EPINEPHrine INJ 1 MG/ML 1ML AMP IM PRN; +LEVO137T2 PO; +NS 1,000 ML IV SCH; +diphenhydrAMINE 50MG/ML VIAL (J1200) IV PRN; +methylPREDNISolone 125MG 2ML VIAL IV PRN
[2021-01-11 19:40] VITALS: BP 121/80
[2021-01-11 19:44] VITALS: BP 121/80
[2021-01-11 20:40] VITALS: BP 120/68
[2021-01-11 21:00] VITALS: BP 112/71
[2021-01-11] MEDS ORDERED: CASIRIVIMAB (REGN10933) 600 MG, IMDEVIMAB (REGN10987) 600 MG in NS 250 ML IV ONE (21:00)
[2021-01-11 21:30] VITALS: BP 108/73
[2021-01-11 22:30] VITALS: BP 112/68
== END 2021-01-11 23:00 ==
LOC: M OPCLI4 19:23 → M ICU 19:23 → M OPCLI4 23:00
PROVIDERS: ATTEND Internal Medicine Nephrology
DX: U07.1 COVID-19 (principal); Z88.8 Allergy status to other drugs, medicaments and biological substances

== ENCOUNTER → 2021-05-04 | Outpatient (CLI) | payer OTHER ==
[~2021-05-04] MED LIST changes: -ACETAMINOPHEN TAB 650MG DOSE (2X325MG) PO PRN; -ALBUTEROL 90 MCG/ACT 8GM HFA INHALER INH PRN; -ALBUTEROL SULFATE 2.5 MG/0.5 ML INH NEB SOLN INH PRN; -CASIRIVIMAB/IMDEVIMAB 1,200 MG in NS 250 ML IV ONE; -EPINEPHrine INJ 1 MG/ML 1ML AMP IM PRN; -NS 1,000 ML IV SCH; -diphenhydrAMINE 50MG/ML VIAL (J1200) IV PRN; -methylPREDNISolone 125MG 2ML VIAL IV PRN
[2021-05-04 19:28] LABS: FREE T4 0.93 NG/DL (0.76-1.46); THYROID STIMULATING HORMONE 7.76 uIU/ML (0.358-3.740)
== END ==
LOC: M LAB 18:22
PROVIDERS: ATTEND Nurse Practitioner Family
DX: E89.0 Postprocedural hypothyroidism (principal)

== ENCOUNTER 2021-08-18 16:26 | Emergency (ER) | payer OTHER ==
[~2021-08-18] VITALS: Ht 182.9 cm; Wt 91.3 kg
[2021-08-18] MEDS ORDERED: EQL50TAB2 PO (16:52)
[2021-08-18] MEDS ORDERED: KETOROLAC 60MG 2ML VIAL IM ONE (18:05)
[2021-08-18] MEDS ORDERED: LIDOCAINE 4% CREAM 5GM (LMX4) TOP ONE (18:05)
[2021-08-18] MEDS ORDERED: NAPR-837 PO (20:25)
[2021-08-18] MEDS ORDERED: CAPS0.022 TOP (20:25)
[2021-08-18 20:47] VITALS: BP 131/79
== END 2021-08-18 20:50 | disposition home or self-care (01) ==
LOC: M ED 16:26
DX: S89.92XA Unspecified injury of left lower leg, initial encounter (principal); X58.XXXA Exposure to other specified factors, initial encounter; Y92.89 Other specified places as the place of occurrence of the external cause; G35 Multiple sclerosis; E05.90 Thyrotoxicosis, unspecified without thyrotoxic crisis or storm; E83.42 Hypomagnesemia; E87.6 Hypokalemia; Z79.899 Other long term (current) drug therapy; Z79.890 Hormone replacement therapy; Z88.5 Allergy status to narcotic agent; Z88.8 Allergy status to other drugs, medicaments and biological substances
CPT/HCPCS: 73564; 93971; 96372; 99284; J1885

== ENCOUNTER 2021-08-24 08:12 | Outpatient (CLI) | payer OTHER ==
[~2021-08-24] VITALS: Ht 182.9 cm; Wt 92.7 kg
[2021-08-24] VITALS (10 sets, daily range): BP systolic 110–147; BP diastolic 68–86
[~2021-08-24 08:12] MED LIST changes: +CAPS0.022 TOP; +EQL50TAB2 PO; +NAPR-837 PO; +OCRELIZUMAB 300 MG in NS 250 ML IV ONE
[2021-08-24] MEDS ORDERED: methylPREDNISolone 125MG 2ML VIAL IV PRN (09:00)
[2021-08-24] MEDS ORDERED: diphenhydrAMINE 25MG CAP PO ONE (09:00)
[2021-08-24] MEDS ORDERED: methylPREDNISolone 125MG 2ML VIAL IV ONE (09:00)
[2021-08-24] MEDS ORDERED: ACETAMINOPHEN TAB 650MG DOSE (2X325MG) PO ONE (09:00)
[2021-08-24] MEDS ORDERED: diphenhydrAMINE 50MG/ML VIAL (J1200) IV ONE (09:00)
== END 2021-08-24 14:35 | disposition home or self-care (01) ==
LOC: M INFU 08:12
PROVIDERS: ATTEND Physician Assistant
DX: G35 Multiple sclerosis (principal); Z88.5 Allergy status to narcotic agent; Z88.8 Allergy status to other drugs, medicaments and biological substances
CPT/HCPCS: 96365; 96366; 96375; J1200; J2350; J2930

== ENCOUNTER → 2021-09-06 | Outpatient (CLI) | payer OTHER ==
[~2021-09-06] MED LIST changes: -OCRELIZUMAB 300 MG in NS 250 ML IV ONE
[2021-09-06 19:56] LABS: FREE T4 0.97 NG/DL (0.76-1.46); THYROID STIMULATING HORMONE 1.98 uIU/ML (0.358-3.740)
== END ==
LOC: M LAB 14:27
PROVIDERS: ATTEND Nurse Practitioner Family
DX: E89.0 Postprocedural hypothyroidism (principal)

== ENCOUNTER → 2021-09-08 | Outpatient (CLI) | payer OTHER | LOC: M RAD 16:40 | PROVIDERS: ATTEND Orthopaedic Surgery | DX: S83.282A Other tear of lateral meniscus, current injury, left knee, initial encounter (principal); M94.262 Chondromalacia, left knee; M25.462 Effusion, left knee; M71.22 Synovial cyst of popliteal space [Baker], left knee; X58.XXXA Exposure to other specified factors, initial encounter; Y92.9 Unspecified place or not applicable; Y93.9 Activity, unspecified; Y99.9 Unspecified external cause status ==

== ENCOUNTER → 2021-11-10 | Outpatient (CLI) | payer OTHER ==
[2021-11-10 17:47] LABS: BASO # 0.1 10^3/uL (0.0-0.2); BASO % 1.2 % (0.0-1.0); EOS # 0.2 10^3/uL (0.0-0.5); EOS % 3.9 % (0.0-3.0); HEMATOCRIT 45.6 % (42.0-52.0); HEMOGLOBIN 15.4 g/dl (13.5-17.5); LYMPH # 1.5 10^3/uL (1.5-5.0); LYMPH % 28.3 % (24.0-44.0); MEAN CORPUSCULAR HEMOGLOBIN 30.4 pg (27.0-33.0); MEAN CORPUSCULAR HGB CONC 33.8 g/dl (32.0-36.5); MEAN CORPUSCULAR VOLUME 89.9 fl (80.0-96.0); MONO # 0.5 10^3/uL (0.0-0.8); MONO % 10.4 % (2.0-8.0); NEUTROPHILS # 2.9 10^3/uL (1.5-8.5); NEUTROPHILS % 55.8 % (36.0-66.0); PLATELET COUNT, AUTOMATED 202 10^3/uL (150-450); RED BLOOD COUNT 5.07 10^6/uL (4.30-6.10); WHITE BLOOD COUNT 5.2 10^3/uL (4.0-10.0)
[2021-11-10 18:10] LABS: ALT/SGPT 78 U/L (12-78); BILIRUBIN,TOTAL 0.9 MG/DL (0.2-1.0); BLOOD UREA NITROGEN 16 MG/DL (7-18); CALCIUM LEVEL 9.5 MG/DL (8.5-10.1); CARBON DIOXIDE LEVEL 25 MEQ/L (21-32); CHLORIDE LEVEL 109 MEQ/L (98-107); CHOLESTEROL LEVEL 140 MG/DL (<200); CHOLESTEROL RISK RATIO 3.414 (<5); CREATININE FOR GFR 1.14 MG/DL (0.70-1.30); FREE T4 0.95 NG/DL (0.76-1.46); GLOMERULAR FILTRATION RATE > 60.0 (>56); GLUCOSE, FASTING 86 MG/DL (70-100); HDL CHOLESTEROL 41 MG/DL (>40); LDL CHOLESTEROL 59 MG/DL (<100); NON-HDL-C 99 MG/DL; POTASSIUM SERUM 4.8 MEQ/L (3.5-5.1); SODIUM LEVEL 138 MEQ/L (136-145); TOTAL PROTEIN 7.5 GM/DL (6.4-8.2); TRIGLYCERIDES LEVEL 200 MG/DL (<150)
[2021-11-10 19:19] LABS: TOTAL 25(OH) VITAMIN D 24.9 NG/ML (30.0-100.0)
[2021-11-10 20:05] LABS: HEMOGLOBIN A1c 5.6 %
== END ==
LOC: M LAB 15:27
PROVIDERS: ATTEND Nurse Practitioner Family
DX: E78.2 Mixed hyperlipidemia (principal); E55.9 Vitamin D deficiency, unspecified; G35 Multiple sclerosis; E89.0 Postprocedural hypothyroidism

== ENCOUNTER → 2021-12-31 | Outpatient (CLI) | payer OTHER | LOC: M LAB 18:26 | PROVIDERS: ATTEND Nurse Practitioner Family | DX: Z53.9 Procedure and treatment not carried out, unspecified reason (principal) ==

== ENCOUNTER → 2022-02-23 | Outpatient (REF) | payer OTHER | LOC: M SFHCPLAZ 13:05 | PROVIDERS: ATTEND Nurse Practitioner Family | DX: R19.7 Diarrhea, unspecified (principal) ==

== ENCOUNTER → 2022-03-11 | Outpatient (CLI) | payer OTHER | LOC: M INFU 07:52 | PROVIDERS: ATTEND Physician Assistant | DX: G35 Multiple sclerosis (principal); Z53.9 Procedure and treatment not carried out, unspecified reason ==

== ENCOUNTER 2022-03-25 10:22 | Emergency (ER) | payer OTHER ==
[~2022-03-25] VITALS: Ht 182.9 cm; Wt 90.0 kg
[2022-03-25] MEDS ORDERED: GABA-1171 (10:50)
[2022-03-25] MEDS ORDERED: NAPR220C14 PO (10:50)
[2022-03-25] MEDS ORDERED: LIDOCAINE 5% (LIDODERM) PATCH TD ONE (11:30)
[2022-03-25] MEDS ORDERED: methylPREDNISolone 125MG 2ML VIAL IV ONE (11:30)
[2022-03-25] MEDS ORDERED: diazePAM 10MG/2ML SYRINGE IV ONE (11:30)
[2022-03-25] MEDS ORDERED: NAPR-837 PO (12:42)
[2022-03-25] MEDS ORDERED: LIDO5DIS41 TOP (12:42)
[2022-03-25] MEDS ORDERED: CYCL-707 PO (12:42)
[2022-03-25 12:56] VITALS: BP 119/76
== END 2022-03-25 12:59 | disposition home or self-care (01) ==
LOC: M ED 10:22
DX: S39.012A Strain of muscle, fascia and tendon of lower back, initial encounter (principal); W00.0XXA Fall on same level due to ice and snow, initial encounter; G35 Multiple sclerosis; Z87.442 Personal history of urinary calculi; E78.00 Pure hypercholesterolemia, unspecified; E05.90 Thyrotoxicosis, unspecified without thyrotoxic crisis or storm; Z79.890 Hormone replacement therapy; Z79.899 Other long term (current) drug therapy; Z88.8 Allergy status to other drugs, medicaments and biological substances; Z88.5 Allergy status to narcotic agent

== ENCOUNTER 2022-03-28 08:05 | Outpatient (CLI) | payer OTHER ==
[~2022-03-28 08:05] MED LIST changes: +CYCL-707 PO; +GABA-1171; +LIDO5DIS41 TOP; +NAPR220C14 PO; +OCRELIZUMAB 600 MG in NS 500 ML IV ONE
[2022-03-28 08:15] VITALS: BP 131/79
[2022-03-28] MEDS ORDERED: diphenhydrAMINE 25MG CAP PO ONE (09:00)
[2022-03-28] MEDS ORDERED: methylPREDNISolone 125MG 2ML VIAL IV ONE (09:00)
[2022-03-28] MEDS ORDERED: ACETAMINOPHEN 500 MG TAB PO ONE (09:00)
[2022-03-28 09:40] VITALS: BP 130/79
[2022-03-28 10:10] VITALS: BP 132/81
[2022-03-28 11:10] VITALS: BP 124/80
[2022-03-28 13:05] VITALS: BP 137/80
== END 2022-03-28 13:20 | disposition home or self-care (01) ==
LOC: M INFU 08:05
PROVIDERS: ATTEND Physician Assistant
DX: G35 Multiple sclerosis (principal); Z88.5 Allergy status to narcotic agent; Z88.8 Allergy status to other drugs, medicaments and biological substances
CPT/HCPCS: 96365; 96366; 96375; J2350

== ENCOUNTER → 2022-05-09 | Outpatient (CLI) | payer OTHER ==
[~2022-05-09] MED LIST changes: -OCRELIZUMAB 600 MG in NS 500 ML IV ONE
[2022-05-09 15:53] LABS: APPEARANCE, URINE CLEAR (CLEAR); BACTERIA, URINE AUTO NEGATIVE (NEGATIVE); BILIRUBIN, URINE AUTO NEGATIVE (NEGATIVE); BLOOD, URINE BLOOD NEGATIVE (NEGATIVE); COLOR, URINE YELLOW (YELLOW); GLUCOSE, URINE (UA) AUTO NEGATIVE (NEGATIVE); KETONE, URINE AUTO TRACE mg/dL (NEGATIVE); LEUKOCYTE ESTERASE, URINE AUTO NEGATIVE (NEGATIVE); MUCUS, URINE MODERATE (NEGATIVE); NITRITE, URINE AUTO NEGATIVE (NEGATIVE); PROTEIN, URINE AUTO NEGATIVE (NEGATIVE); RBC, URINE AUTO 1 /HPF (0-3); SPECIFIC GRAVITY URINE AUTO 1.024 (1.002-1.035); SQUAMOUS EPITHELIAL CELL UR AU 0 /HPF (0-6); UROBILINOGEN, URINE AUTO 0.2 mg/dL (0.0-2.0); WBC, URINE AUTO 1 /HPF (0-3)
[2022-05-09 16:19] LABS: FREE T3 3.4 PG/ML (2.3-4.2)
[2022-05-09 16:20] LABS: FREE T4 1.03 NG/DL (0.89-1.76); THYROID STIMULATING HORMONE 5.733 uIU/ML (0.55-4.78)
== END ==
LOC: M LAB 15:07
PROVIDERS: ATTEND Physician Assistant
DX: G35 Multiple sclerosis (principal); R53.83 Other fatigue

== ENCOUNTER 2022-05-16 16:30 | Outpatient (CLI) | payer OTHER ==
[~2022-05-16] VITALS: Ht 182.9 cm; Wt 92.3 kg
[2022-05-16 16:30] VITALS: BP 119/80
[~2022-05-16 16:30] MED LIST changes: +methylPREDNISolone 1,000 MG, VIAL MATE ADAPTER 1 EACH in D5W 250 ML IV ONE
[2022-05-16 18:06] VITALS: BP 142/94
== END 2022-05-16 18:05 | disposition home or self-care (01) ==
LOC: M INFU 16:30
PROVIDERS: ATTEND Physician Assistant
DX: G35 Multiple sclerosis (principal); Z88.5 Allergy status to narcotic agent; Z88.8 Allergy status to other drugs, medicaments and biological substances
CPT/HCPCS: 96365; J2930

== ENCOUNTER 2022-05-17 16:30 | Outpatient (CLI) | payer OTHER ==
[~2022-05-17] VITALS: Ht 182.9 cm; Wt 92.3 kg
[2022-05-17 16:30] VITALS: BP 128/88
[2022-05-17 17:50] VITALS: BP 130/86
== END 2022-05-17 17:50 | disposition home or self-care (01) ==
LOC: M INFU 16:30
PROVIDERS: ATTEND Physician Assistant
DX: G35 Multiple sclerosis (principal); Z88.5 Allergy status to narcotic agent; Z88.8 Allergy status to other drugs, medicaments and biological substances
CPT/HCPCS: 96365; J2930

== ENCOUNTER 2022-05-18 16:28 | Outpatient (CLI) | payer OTHER ==
[~2022-05-18] VITALS: Ht 182.9 cm; Wt 92.3 kg
[~2022-05-18 16:28] MED LIST changes: -methylPREDNISolone 1,000 MG, VIAL MATE ADAPTER 1 EACH in D5W 250 ML IV ONE
[2022-05-18 16:30] VITALS: BP 136/68
[2022-05-18] MEDS ORDERED: methylPREDNISolone 1,000 MG, VIAL MATE ADAPTER 1 EACH in D5W 250 ML IV ONE (16:30)
[2022-05-18 17:46] VITALS: BP 124/72
== END 2022-05-18 17:50 | disposition home or self-care (01) ==
LOC: M INFU 16:28
PROVIDERS: ATTEND Physician Assistant
DX: G35 Multiple sclerosis (principal); Z88.5 Allergy status to narcotic agent; Z88.8 Allergy status to other drugs, medicaments and biological substances
CPT/HCPCS: 96365; J2930

== ENCOUNTER 2022-05-19 16:20 | Outpatient (CLI) | payer OTHER ==
[~2022-05-19] VITALS: Ht 182.9 cm; Wt 92.0 kg
[2022-05-19 16:25] VITALS: BP 131/64
[2022-05-19] MEDS ORDERED: methylPREDNISolone 1,000 MG, VIAL MATE ADAPTER 1 EACH in NS 250 ML IV ONE (16:30)
[2022-05-19 17:29] VITALS: BP 126/72
== END 2022-05-19 17:35 | disposition home or self-care (01) ==
LOC: M INFU 16:20
PROVIDERS: ATTEND Physician Assistant
DX: G35 Multiple sclerosis (principal); Z88.5 Allergy status to narcotic agent; Z88.8 Allergy status to other drugs, medicaments and biological substances
CPT/HCPCS: 96365; J2930

== ENCOUNTER 2022-05-20 16:30 | Outpatient (CLI) | payer OTHER ==
[2022-05-20 16:30] VITALS: BP 138/80
[~2022-05-20 16:30] MED LIST changes: +methylPREDNISolone 1,000 MG, VIAL MATE ADAPTER 1 EACH in D5W 250 ML IV ONE
== END 2022-05-20 17:00 | disposition home or self-care (01) ==
LOC: M INFU 16:30
PROVIDERS: ATTEND Physician Assistant
DX: G35 Multiple sclerosis (principal); Z53.9 Procedure and treatment not carried out, unspecified reason

== ENCOUNTER 2022-05-27 07:55 | Emergency (ER) | payer OTHER ==
[~2022-05-27] VITALS: Ht 182.9 cm; Wt 92.3 kg
[~2022-05-27 07:55] MED LIST changes: -ATOR1TAB21; +ATOR1TAB21 PO; -GABA-1171; -methylPREDNISolone 1,000 MG, VIAL MATE ADAPTER 1 EACH in D5W 250 ML IV ONE
[2022-05-27 09:27] LABS: BASO % 0.3 % (0.0-1.0); EOS # 0.2 10^3/uL (0.0-0.5); HEMATOCRIT 46.3 % (42.0-52.0); HEMOGLOBIN 15.2 g/dl (13.5-17.5); LYMPH # 1.3 10^3/uL (1.5-5.0); LYMPH % 18.4 % (24.0-44.0); MEAN CORPUSCULAR HEMOGLOBIN 29.5 pg (27.0-33.0); MEAN CORPUSCULAR HGB CONC 32.8 g/dl (32.0-36.5); MEAN CORPUSCULAR VOLUME 89.7 fl (80.0-96.0); MONO # 0.7 10^3/uL (0.0-0.8); MONO % 9.6 % (2.0-8.0); NEUTROPHILS # 4.7 10^3/uL (1.5-8.5); NEUTROPHILS % 67.3 % (36.0-66.0); PLATELET COUNT, AUTOMATED 208 10^3/uL (150-450); RED BLOOD COUNT 5.16 10^6/uL (4.30-6.10); WHITE BLOOD COUNT 6.9 10^3/uL (4.0-10.0)
[2022-05-27 09:52] LABS: BLOOD UREA NITROGEN 15 MG/DL (9-23); CALCIUM LEVEL 9.1 MG/DL (8.5-10.1); CARBON DIOXIDE LEVEL 30 MMOL/L (20-31); CHLORIDE LEVEL 106 MMOL/L (98-107); CREATININE FOR GFR 1.12 MG/DL (0.70-1.30); GLOMERULAR FILTRATION RATE > 60.0 (>56); GLUCOSE, FASTING 88 MG/DL (60-100); SODIUM LEVEL 143 MMOL/L (136-145)
[2022-05-27 09:57] LABS: RSV AMPLIFICATION NEGATIVE (NEGATIVE)
[2022-05-27] MEDS ORDERED: HOME MED LIST COMPLETE! XX SCH (10:30)
[2022-05-27] MEDS ORDERED: ACET650T15 PO (10:30)
[2022-05-27] MEDS ORDERED: PROHANCE 279.3MG/ML 5ML VIAL As Ordered ONE (17:35)
[2022-05-27] MEDS ORDERED: PROHANCE 279.3MG/ML 15ML VIAL As Ordered ONE (17:36)
[2022-05-27] MEDS ORDERED: KETO10TAB PO (22:23)
[2022-05-27 22:30] VITALS: BP 138/97
== END 2022-05-27 22:46 | disposition home or self-care (01) ==
LOC: M ED 07:55 → EDBD 07:55 → CANBEDREQ 14:53 → M ED 22:46
DX: G35 Multiple sclerosis (principal); M51.24 Other intervertebral disc displacement, thoracic region; K21.9 Gastro-esophageal reflux disease without esophagitis; Z88.5 Allergy status to narcotic agent; Z88.8 Allergy status to other drugs, medicaments and biological substances; Z79.890 Hormone replacement therapy; Z79.899 Other long term (current) drug therapy
CPT/HCPCS: 70553; 71045; 72148; 72156; 72157; 80048; 81001; 85025; 87040; 87631; 93005; 99285; A9576

== ENCOUNTER → 2022-08-08 | Outpatient (CLI) | payer OTHER ==
[~2022-08-08] MED LIST changes: +ACET650T15 PO
== END ==
LOC: M LAB 14:10
PROVIDERS: ATTEND Nurse Practitioner Family
DX: E89.0 Postprocedural hypothyroidism (principal)

== ENCOUNTER → 2022-08-08 | Outpatient (CLI) | payer OTHER ==
[2022-08-08 15:07] LABS: BASO # 0.1 10^3/uL (0.0-0.2); BASO % 1.3 % (0.0-1.0); EOS # 0.2 10^3/uL (0.0-0.5); EOS % 2.8 % (0.0-3.0); HEMATOCRIT 44.9 % (42.0-52.0); HEMOGLOBIN 14.9 g/dl (13.5-17.5); LYMPH # 1.6 10^3/uL (1.5-5.0); LYMPH % 29.7 % (24.0-44.0); MEAN CORPUSCULAR HGB CONC 33.2 g/dl (32.0-36.5); MEAN CORPUSCULAR VOLUME 90.5 fl (80.0-96.0); MONO # 0.7 10^3/uL (0.0-0.8); MONO % 13.6 % (2.0-8.0); NEUTROPHILS # 2.8 10^3/uL (1.5-8.5); NEUTROPHILS % 52.4 % (36.0-66.0); PLATELET COUNT, AUTOMATED 227 10^3/uL (150-450); RED BLOOD COUNT 4.96 10^6/uL (4.30-6.10); WHITE BLOOD COUNT 5.4 10^3/uL (4.0-10.0)
[2022-08-08 15:56] LABS: ALBUMIN 4.2 G/DL (3.2-5.2); ALKALINE PHOSPHATASE 76 U/L (46-116); ALT/SGPT 50 U/L (7.0-40); AST/SGOT 23 U/L (<34); BILIRUBIN,TOTAL 0.7 MG/DL (0.3-1.2); BLOOD UREA NITROGEN 13 MG/DL (9-23); CALCIUM LEVEL 9.1 MG/DL (8.5-10.1); CARBON DIOXIDE LEVEL 27 MMOL/L (20-31); CHLORIDE LEVEL 108 MMOL/L (98-107); CREATININE FOR GFR 1.08 MG/DL (0.70-1.30); FREE T3 3.8 PG/ML (2.3-4.2); FREE T4 1.16 NG/DL (0.89-1.76); GLOMERULAR FILTRATION RATE > 60.0 (>56); GLUCOSE, FASTING 82 MG/DL (60-100); POTASSIUM SERUM 3.9 MMOL/L (3.5-5.1); SODIUM LEVEL 142 MMOL/L (136-145); THYROID STIMULATING HORMONE 3.123 uIU/ML (0.55-4.78); TOTAL 25(OH) VITAMIN D 28.1 NG/ML (20.0-100.0); TOTAL PROTEIN 6.6 G/DL (5.7-8.2)
[2022-08-08 18:17] LABS: THYROID PEROXIDASE ANTIBODY 57 U/ML (<60.0)
[2022-08-08 18:21] LABS: IMMUNOGLOBULIN A 210.3 MG/DL (40-350)
== END ==
LOC: M LAB 14:12
PROVIDERS: ATTEND Physician Assistant
DX: G35 Multiple sclerosis (principal)

== ENCOUNTER 2022-10-10 05:56 | Outpatient (CLI) | payer OTHER ==
[~2022-10-10] VITALS: Ht 182.9 cm; Wt 93.6 kg
[2022-10-10] MEDS ORDERED: ALBUTEROL SULFATE 2.5MG/0.5ML INH NEB SOLN INH PRN (07:01)
[2022-10-10] MEDS ORDERED: EPINEPHrine INJ 1 MG/ML 1ML AMP IM PRN (07:01)
[2022-10-10] MEDS ORDERED: methylPREDNISolone 125MG 2ML VIAL IV PRN (07:01)
[2022-10-10] MEDS ORDERED: diphenhydrAMINE 50MG/ML VIAL IV PRN (07:01)
[2022-10-10 08:32] VITALS: BP 121/76; O2SAT 97
[2022-10-10] MEDS ORDERED: diphenhydrAMINE 50MG/ML VIAL IV ONE (09:00)
[2022-10-10] MEDS ORDERED: OCRELIZUMAB 600 MG in NS 500 ML IV ONE (09:00)
[2022-10-10] MEDS ORDERED: ACETAMINOPHEN TAB 650MG DOSE (2X325MG) PO ONE (09:00)
[2022-10-10] MEDS ORDERED: NS 1,000 ML IV SCH (09:00)
[2022-10-10] MEDS ORDERED: methylPREDNISolone 125MG 2ML VIAL IV ONE (09:00)
[2022-10-10 09:30] VITALS: BP 116/77; O2SAT 100
[2022-10-10 10:00] VITALS: BP 114/68; O2SAT 98
[2022-10-10 10:30] VITALS: BP 111/72; O2SAT 98
[2022-10-10 11:00] VITALS: BP 105/72; O2SAT 97
[2022-10-10 12:55] VITALS: BP 133/82; O2SAT 98
== END 2022-10-10 12:55 ==
LOC: M INFU 05:56
PROVIDERS: ATTEND Physician Assistant
DX: G35 Multiple sclerosis (principal); Z88.8 Allergy status to other drugs, medicaments and biological substances; Z88.5 Allergy status to narcotic agent
CPT/HCPCS: 96365; 96366; 96375; J1200; J2350; J2930

== ENCOUNTER → 2023-02-02 | Outpatient (CLI) | payer OTHER ==
[~2023-02-02] MED LIST changes: +MECL-209 PO; -MECL1TAB31 PO
[2023-02-02 14:00] LABS: THYROID STIMULATING HORMONE 5.893 uIU/ML (0.55-4.78)
[2023-02-02 14:01] LABS: FREE T4 0.94 NG/DL (0.89-1.76)
== END ==
LOC: M LAB 13:04
PROVIDERS: ATTEND Nurse Practitioner Family
DX: E89.0 Postprocedural hypothyroidism (principal)

== ENCOUNTER → 2023-02-15 | Outpatient (CLI) | payer OTHER ==
[2023-02-15 09:32] LABS: CHOLESTEROL RISK RATIO 5.21 (<5); HDL CHOLESTEROL 43.5 MG/DL (>40); LDL CHOLESTEROL 160.5 MG/DL (<100); NON-HDL-C 183.5 MG/DL
== END ==
LOC: M LAB 08:20
PROVIDERS: ATTEND Nurse Practitioner Family
DX: E78.2 Mixed hyperlipidemia (principal)

== ENCOUNTER 2023-04-12 08:30 | Outpatient (CLI) | payer OTHER ==
[~2023-04-12] VITALS: Ht 182.9 cm; Wt 93.0 kg
[2023-04-12] MEDS: methylPREDNISolone 125MG 2ML VIAL IV ONE (08:28)
[2023-04-12] MEDS: diphenhydrAMINE 50MG/ML VIAL IV ONE (08:28)
[2023-04-12] MEDS: ACETAMINOPHEN TAB 650MG DOSE (2X325MG) PO ONE (08:28)
[2023-04-12 08:30] VITALS: BP 137/86; O2SAT 97
[~2023-04-12 08:30] MED LIST changes: +ALBUTEROL SULFATE 2.5MG/0.5ML INH NEB SOLN INH PRN; +EPINEPHrine INJ 1 MG/ML 1ML AMP IM PRN; +NS 1,000 ML IV SCH; +diphenhydrAMINE 50MG/ML VIAL IV PRN; +methylPREDNISolone 125MG 2ML VIAL IV PRN
[2023-04-12] MEDS: OCRELIZUMAB 600 MG in NS 500 ML IV ONE (09:09)
[2023-04-12 10:10] VITALS: BP 117/69; O2SAT 98
[2023-04-12 13:11] VITALS: BP 122/82; O2SAT 99
== END 2023-04-12 13:10 ==
LOC: M INFU 08:30
PROVIDERS: ATTEND Physician Assistant
DX: G35 Multiple sclerosis (principal); Z88.5 Allergy status to narcotic agent; Z88.8 Allergy status to other drugs, medicaments and biological substances
CPT/HCPCS: 96365; 96366; J1200; J2350

== ENCOUNTER → 2023-04-19 | Outpatient (CLI) | payer OTHER ==
[~2023-04-19] MED LIST changes: -ALBUTEROL SULFATE 2.5MG/0.5ML INH NEB SOLN INH PRN; -EPINEPHrine INJ 1 MG/ML 1ML AMP IM PRN; -NS 1,000 ML IV SCH; -diphenhydrAMINE 50MG/ML VIAL IV PRN; -methylPREDNISolone 125MG 2ML VIAL IV PRN
[2023-04-19 12:21] LABS: FREE T4 1.15 NG/DL (0.89-1.76); THYROID STIMULATING HORMONE 4.233 uIU/ML (0.55-4.78)
== END ==
LOC: M LAB 10:46
PROVIDERS: ATTEND Nurse Practitioner Family
DX: E89.0 Postprocedural hypothyroidism (principal)

== ENCOUNTER → 2023-04-26 | Outpatient (CLI) | payer OTHER ==
[~2023-04-26] MED LIST changes: +PROHANCE 279.3MG/ML 15ML VIAL As Ordered ONE; +PROHANCE 279.3MG/ML 5ML VIAL As Ordered ONE
== END ==
LOC: M RAD 08:15
PROVIDERS: ATTEND Physician Assistant
DX: G35 Multiple sclerosis (principal); M48.02 Spinal stenosis, cervical region; R90.82 White matter disease, unspecified
CPT/HCPCS: 70553; 72156; A9576

== ENCOUNTER → 2023-06-21 | Outpatient (CLI) | payer OTHER ==
[~2023-06-21] MED LIST changes: -PROHANCE 279.3MG/ML 15ML VIAL As Ordered ONE; -PROHANCE 279.3MG/ML 5ML VIAL As Ordered ONE
[2023-06-21 10:15] LABS: BASO # 0.1 10^3/uL (0.0-0.2); BASO % 1.1 % (0.0-1.0); EOS # 0.2 10^3/uL (0.0-0.5); EOS % 3.9 % (0.0-3.0); HEMATOCRIT 47.4 % (42.0-52.0); LYMPH # 1.4 10^3/uL (1.5-5.0); LYMPH % 25.9 % (24.0-44.0); MEAN CORPUSCULAR HEMOGLOBIN 30.5 pg (27.0-33.0); MEAN CORPUSCULAR HGB CONC 33.8 g/dl (32.0-36.5); MEAN CORPUSCULAR VOLUME 90.3 fl (80.0-96.0); MONO # 0.5 10^3/uL (0.0-0.8); MONO % 9.2 % (2.0-8.0); NEUTROPHILS # 3.2 10^3/uL (1.5-8.5); NEUTROPHILS % 59.7 % (36.0-66.0); PLATELET COUNT, AUTOMATED 214 10^3/uL (150-450); RED BLOOD COUNT 5.25 10^6/uL (4.30-6.10); WHITE BLOOD COUNT 5.3 10^3/uL (4.0-10.0)
[2023-06-21 10:45] LABS: IMMUNOGLOBULIN A 212.3 MG/DL (40-350)
[2023-06-21 10:47] LABS: IMMUNOGLOBULIN G 947 MG/DL (650-1600)
[2023-06-21 10:48] LABS: ALBUMIN 4.2 G/DL (3.2-5.2); ALKALINE PHOSPHATASE 84 U/L (46-116); ALT/SGPT 36 U/L (7.0-40); AST/SGOT 23 U/L (<34); BLOOD UREA NITROGEN 14 MG/DL (9-23); CARBON DIOXIDE LEVEL 28 MMOL/L (20-31); CHLORIDE LEVEL 106 MMOL/L (98-107); CREATININE FOR GFR 1.08 MG/DL (0.70-1.30); GLOMERULAR FILTRATION RATE > 60.0 (>56); GLUCOSE, FASTING 96 MG/DL (60-100); POTASSIUM SERUM 4.2 MMOL/L (3.5-5.1); SODIUM LEVEL 142 MMOL/L (136-145); TOTAL 25(OH) VITAMIN D 20.8 NG/ML (20.0-100.0); TOTAL PROTEIN 6.7 G/DL (5.7-8.2); VITAMIN B12 LEVEL 384 PG/ML (211-911)
== END ==
LOC: M LAB 08:31
PROVIDERS: ATTEND Physician Assistant
DX: R53.83 Other fatigue (principal); G35 Multiple sclerosis

== ENCOUNTER 2023-08-02 21:45 | Emergency (ER) | payer OTHER ==
[~2023-08-02] VITALS: Ht 182.9 cm; Wt 92.5 kg
[2023-08-02 21:47] VITALS: TEMP 98
[2023-08-02] MEDS: AMPICILLIN SOD/SULBACTAM SOD 3 GM in D5W MINI-BAG PLUS 100 ML IV ONE (23:32)
[2023-08-02 23:41] LABS: BASO # 0.1 10^3/uL (0.0-0.2); BASO % 0.8 % (0.0-1.0); EOS # 0.2 10^3/uL (0.0-0.5); EOS % 2.8 % (0.0-3.0); HEMATOCRIT 42.7 % (42.0-52.0); HEMOGLOBIN 14.7 g/dl (13.5-17.5); LYMPH # 1.6 10^3/uL (1.5-5.0); LYMPH % 27.2 % (24.0-44.0); MEAN CORPUSCULAR HEMOGLOBIN 30.3 pg (27.0-33.0); MEAN CORPUSCULAR HGB CONC 34.4 g/dl (32.0-36.5); MONO # 0.8 10^3/uL (0.0-0.8); MONO % 13.4 % (2.0-8.0); NEUTROPHILS # 3.3 10^3/uL (1.5-8.5); NEUTROPHILS % 55.6 % (36.0-66.0); PLATELET COUNT, AUTOMATED 205 10^3/uL (150-450); RED BLOOD COUNT 4.85 10^6/uL (4.30-6.10)
[2023-08-02] MEDS ORDERED: AMOX875T2 PO (23:47)
[2023-08-03] VITALS: BP 116/76; O2SAT 96
[2023-08-03 00:04] LABS: C REACTIVE PROTEIN QUANTITATIV < 0.40 MG/DL (<1.0)
[2023-08-03 00:05] LABS: ALBUMIN 3.8 G/DL (3.2-5.2); ALKALINE PHOSPHATASE 83 U/L (46-116); ALT/SGPT 40 U/L (7.0-40); AST/SGOT 16 U/L (<34); BILIRUBIN,TOTAL 0.5 MG/DL (0.3-1.2); BLOOD UREA NITROGEN 14 MG/DL (9-23); CALCIUM LEVEL 9.1 MG/DL (8.5-10.1); CARBON DIOXIDE LEVEL 26 MMOL/L (20-31); CHLORIDE LEVEL 112 MMOL/L (98-107); CREATININE FOR GFR 1.09 MG/DL (0.70-1.30); GLOMERULAR FILTRATION RATE > 60.0 (>56); GLUCOSE, FASTING 102 MG/DL (60-100); POTASSIUM SERUM 3.6 MMOL/L (3.5-5.1); SODIUM LEVEL 145 MMOL/L (136-145); TOTAL PROTEIN 6.3 G/DL (5.7-8.2)
[2023-08-03] MEDS ORDERED: BACT800T5 PO (00:20)
[2023-08-03] MEDS ORDERED: METR-265 PO (00:20)
== END 2023-08-03 00:28 | disposition home or self-care (01) ==
LOC: M ED 21:45
DX: N49.2 Inflammatory disorders of scrotum (principal); Z79.899 Other long term (current) drug therapy; Z88.0 Allergy status to penicillin; Z88.5 Allergy status to narcotic agent; Z88.8 Allergy status to other drugs, medicaments and biological substances
CPT/HCPCS: 76870; 80053; 81001; 85025; 86140; 87040; 87186; 93976; 96374; 99284; J0295

== ENCOUNTER → 2023-09-13 | Outpatient (CLI) | payer OTHER ==
[~2023-09-13] MED LIST changes: +AMOX875T2 PO; +BACT800T5 PO; +METR-265 PO; +PROHANCE 279.3MG/ML 15ML VIAL ONE; +PROHANCE 279.3MG/ML 5ML VIAL ONE
== END ==
LOC: M PLAIMG 12:51
PROVIDERS: ATTEND Psychiatry & Neurology Neurology
DX: G35 Multiple sclerosis (principal); R26.89 Other abnormalities of gait and mobility; M47.816 Spondylosis without myelopathy or radiculopathy, lumbar region; M48.061 Spinal stenosis, lumbar region without neurogenic claudication

== ENCOUNTER 2023-10-11 07:34 | Outpatient (CLI) | payer OTHER ==
[~2023-10-11] VITALS: Ht 182.9 cm; Wt 93.2 kg
[~2023-10-11 07:34] MED LIST changes: +ALBUTEROL SULFATE 2.5MG/0.5ML INH NEB SOLN INH PRN; +EPINEPHrine INJ 1 MG/ML 1ML AMP IM PRN; +NS 1,000 ML IV SCH; -PROHANCE 279.3MG/ML 15ML VIAL ONE; -PROHANCE 279.3MG/ML 5ML VIAL ONE; +diphenhydrAMINE 50MG/ML VIAL IV PRN; +methylPREDNISolone 125MG 2ML VIAL IV PRN
[2023-10-11] MEDS: diphenhydrAMINE 50MG IV PRIOR TO INFUSION IV ONE (07:46)
[2023-10-11] MEDS: methylPREDNISolone 125MG 2ML VIAL IV ONE (07:48)
[2023-10-11] MEDS: ACETAMINOPHEN TAB 650MG DOSE (2X325MG) PO ONE (07:53)
[2023-10-11 07:56] VITALS: BP 126/74; O2SAT 98
[2023-10-11] MEDS: OCRELIZUMAB 600 MG in NS 500 ML IV ONE (08:22)
[2023-10-11 09:30] VITALS: BP 110/71; O2SAT 96
[2023-10-11 10:00] VITALS: BP 114/71; O2SAT 97
[2023-10-11 10:30] VITALS: BP 120/80; O2SAT 98
[2023-10-11 12:30] VITALS: BP 117/75; O2SAT 98
== END 2023-10-11 12:30 ==
LOC: M INFU 07:34 → EEVIPCON 08:00 → M INFU 12:30
PROVIDERS: ATTEND Physician Assistant
DX: G35 Multiple sclerosis (principal); Z88.1 Allergy status to other antibiotic agents; Z88.8 Allergy status to other drugs, medicaments and biological substances
CPT/HCPCS: 96365; 96366; 96367; J1200; J2350

== ENCOUNTER → 2023-11-08 | Outpatient (CLI) | payer OTHER ==
[~2023-11-08] MED LIST changes: -ALBUTEROL SULFATE 2.5MG/0.5ML INH NEB SOLN INH PRN; -EPINEPHrine INJ 1 MG/ML 1ML AMP IM PRN; -NS 1,000 ML IV SCH; -diphenhydrAMINE 50MG/ML VIAL IV PRN; -methylPREDNISolone 125MG 2ML VIAL IV PRN
[2023-11-08 11:36] LABS: BASO # 0.1 10^3/uL (0.0-0.2); EOS # 0.2 10^3/uL (0.0-0.5); EOS % 3.4 % (0.0-3.0); HEMATOCRIT 47.3 % (42.0-52.0); HEMOGLOBIN 16.1 g/dl (13.5-17.5); LYMPH # 1.8 10^3/uL (1.5-5.0); LYMPH % 31.4 % (24.0-44.0); MEAN CORPUSCULAR HEMOGLOBIN 29.9 pg (27.0-33.0); MEAN CORPUSCULAR VOLUME 87.9 fl (80.0-96.0); MONO # 0.5 10^3/uL (0.0-0.8); NEUTROPHILS # 3.2 10^3/uL (1.5-8.5); PLATELET COUNT, AUTOMATED 244 10^3/uL (150-450); RED BLOOD COUNT 5.38 10^6/uL (4.30-6.10); WHITE BLOOD COUNT 5.8 10^3/uL (4.0-10.0)
[2023-11-08 12:01] LABS: ALBUMIN 4.3 G/DL (3.2-5.2); ALKALINE PHOSPHATASE 88 U/L (46-116); ALT/SGPT 53 U/L (7.0-40); AST/SGOT 28 U/L (<34); BILIRUBIN,TOTAL 1.2 MG/DL (0.3-1.2); BLOOD UREA NITROGEN 15 MG/DL (9-23); CARBON DIOXIDE LEVEL 25 MMOL/L (20-31); CHLORIDE LEVEL 112 MMOL/L (98-107); CHOLESTEROL LEVEL 147 MG/DL (<200); CHOLESTEROL RISK RATIO 3.34 (<5); CREATININE FOR GFR 1.15 MG/DL (0.70-1.30); GLOMERULAR FILTRATION RATE > 60.0 (>56); GLUCOSE, FASTING 97 MG/DL (60-100); HDL CHOLESTEROL 43.9 MG/DL (>40); LDL CHOLESTEROL 82.7 MG/DL (<100); NON-HDL-C 103.1 MG/DL; POTASSIUM SERUM 4.1 MMOL/L (3.5-5.1); SODIUM LEVEL 144 MMOL/L (136-145); TOTAL PROTEIN 7.2 G/DL (5.7-8.2); TRIGLYCERIDES LEVEL 102 MG/DL (<150)
[2023-11-08 12:03] LABS: TOTAL 25(OH) VITAMIN D 73.6 NG/ML (20.0-100.0)
== END ==
LOC: M LAB 10:20
PROVIDERS: ATTEND Nurse Practitioner Family
DX: E55.9 Vitamin D deficiency, unspecified (principal); E78.2 Mixed hyperlipidemia; G35 Multiple sclerosis

== ENCOUNTER → 2023-11-15 | Outpatient (CLI) | payer OTHER | LOC: M RAD 13:03 | PROVIDERS: ATTEND Student in an Organized Health Care Education/Training Program | DX: N20.0 Calculus of kidney (principal) ==

== ENCOUNTER → 2023-11-27 | Outpatient (CLI) | payer OTHER ==
[2023-11-27 16:23] LABS: FREE T3 3.2 PG/ML (2.3-4.2); FREE T4 0.89 NG/DL (0.89-1.76); THYROID STIMULATING HORMONE 13.974 uIU/ML (0.55-4.78)
== END ==
LOC: M LAB 15:32
PROVIDERS: ATTEND Nurse Practitioner Family
DX: E89.0 Postprocedural hypothyroidism (principal)

== ENCOUNTER 2023-12-19 11:52 | Emergency (ER) | payer OTHER ==
[~2023-12-19] VITALS: Ht 182.9 cm; Wt 87.7 kg
[2023-12-19] MEDS: FAMOTIDINE 20MG/2ML VIAL IVP ONE (13:22)
[2023-12-19] MEDS: diphenhydrAMINE 50MG/ML VIAL IV ONE (13:22)
[2023-12-19] MEDS: predniSONE 50 MG TAB PO ONE (13:39)
[2023-12-19] MEDS ORDERED: PEPC1TAB5 PO (14:48)
[2023-12-19] MEDS ORDERED: PRED20TA PO (14:49)
[2023-12-19] MEDS ORDERED: BENA25CA4 PO (14:49)
[2023-12-19 15:15] VITALS: BP 120/81; TEMP 96.9; O2SAT 97
== END 2023-12-19 15:32 | disposition home or self-care (01) ==
LOC: M ED 11:52
DX: T78.49XA Other allergy, initial encounter (principal); T63.441A Toxic effect of venom of bees, accidental (unintentional), initial encounter; R00.1 Bradycardia, unspecified; K21.9 Gastro-esophageal reflux disease without esophagitis; Z88.1 Allergy status to other antibiotic agents; Z88.5 Allergy status to narcotic agent; Z88.8 Allergy status to other drugs, medicaments and biological substances; Z91.030 Bee allergy status; Z79.1 Long term (current) use of non-steroidal anti-inflammatories (NSAID); Z79.52 Long term (current) use of systemic steroids; Z79.899 Other long term (current) drug therapy
CPT/HCPCS: 93005; 93041; 94760; 96374; 99285; J1200; J7512; S0028

== ENCOUNTER 2024-04-24 08:23 | Outpatient (CLI) | payer OTHER ==
[~2024-04-24] VITALS: Ht 182.9 cm; Wt 92.5 kg
[~2024-04-24 08:23] MED LIST changes: +ALBUTEROL SULFATE 2.5MG/0.5ML INH NEB SOLN INH PRN; +BENA25CA4 PO; +EPINEPHrine INJ 1 MG/ML 1ML AMP IM PRN; +METH-1387 PO; -METH10TA PO; +PEPC1TAB5 PO; +diphenhydrAMINE 50MG/ML VIAL IV PRN; +methylPREDNISolone 125MG 2ML VIAL IV PRN
[2024-04-24 08:39] VITALS: BP 126/81; O2SAT 97
[2024-04-24] MEDS: methylPREDNISolone 125MG 2ML VIAL IV ONE (08:49)
[2024-04-24] MEDS: diphenhydrAMINE 50MG/ML VIAL IV ONE (08:49)
[2024-04-24] MEDS: ACETAMINOPHEN 325 MG TAB PO ONE (08:50)
[2024-04-24] MEDS: OCRELIZUMAB 600 MG in NS 500 ML IV ONE (09:32)
[2024-04-24 10:00] VITALS: BP 120/73; O2SAT 96
[2024-04-24 10:30] VITALS: BP 129/87; O2SAT 96
[2024-04-24 11:00] VITALS: BP 130/74; O2SAT 97
[2024-04-24 11:30] VITALS: BP 119/75; O2SAT 98
[2024-04-24 13:40] VITALS: BP 124/76; O2SAT 98
== END 2024-04-24 13:42 ==
LOC: M INFU 08:23
PROVIDERS: ATTEND Pediatrics Pediatric Pulmonology
DX: G35 Multiple sclerosis (principal); Z88.1 Allergy status to other antibiotic agents; Z88.5 Allergy status to narcotic agent; Z88.8 Allergy status to other drugs, medicaments and biological substances
CPT/HCPCS: 96365; 96366; 96375; J1200; J2350

== ENCOUNTER → 2024-05-24 | Outpatient (CLI) | payer OTHER ==
[~2024-05-24] MED LIST changes: -ALBUTEROL SULFATE 2.5MG/0.5ML INH NEB SOLN INH PRN; -EPINEPHrine INJ 1 MG/ML 1ML AMP IM PRN; -diphenhydrAMINE 50MG/ML VIAL IV PRN; -methylPREDNISolone 125MG 2ML VIAL IV PRN
[2024-05-24 19:24] LABS: BASO # 0.1 10^3/uL (0.0-0.2); BASO % 0.9 % (0.0-1.0); EOS # 0.2 10^3/uL (0.0-0.5); EOS % 3.2 % (0.0-3.0); HEMATOCRIT 47.2 % (42.0-52.0); HEMOGLOBIN 15.9 g/dl (13.5-17.5); LYMPH # 1.7 10^3/uL (1.5-5.0); LYMPH % 29.7 % (24.0-44.0); MEAN CORPUSCULAR HEMOGLOBIN 30.5 pg (27.0-33.0); MEAN CORPUSCULAR HGB CONC 33.7 g/dl (32.0-36.5); MEAN CORPUSCULAR VOLUME 90.4 fl (80.0-96.0); MONO # 0.7 10^3/uL (0.0-0.8); MONO % 12.5 % (2.0-8.0); NEUTROPHILS % 53.5 % (36.0-66.0); PLATELET COUNT, AUTOMATED 254 10^3/uL (150-450); RED BLOOD COUNT 5.22 10^6/uL (4.30-6.10); WHITE BLOOD COUNT 5.6 10^3/uL (4.0-10.0)
[2024-05-24 19:44] LABS: ALBUMIN 4.2 G/DL (3.2-5.2); ALKALINE PHOSPHATASE 87 U/L (40-129); ALT/SGPT 46 U/L (7.0-40); AST/SGOT 26 U/L (<34); BILIRUBIN,TOTAL 0.8 MG/DL (0.3-1.2); BLOOD UREA NITROGEN 12 MG/DL (9-23); CALCIUM LEVEL 9.6 MG/DL (8.5-10.1); CARBON DIOXIDE LEVEL 28 MMOL/L (20-31); CHLORIDE LEVEL 108 MMOL/L (98-107); CHOLESTEROL LEVEL 216 MG/DL (<200); CHOLESTEROL RISK RATIO 5.61 (<5); CREATININE FOR GFR 1.11 MG/DL (0.70-1.30); GLOMERULAR FILTRATION RATE > 60.0 (>56); GLUCOSE, FASTING 74 MG/DL (60-100); HDL CHOLESTEROL 38.5 MG/DL (>40); LDL CHOLESTEROL 140.3 MG/DL (<100); NON-HDL-C 177.5 MG/DL; POTASSIUM SERUM 4.2 MMOL/L (3.5-5.1); SODIUM LEVEL 145 MMOL/L (136-145); TOTAL PROTEIN 7.2 G/DL (5.7-8.2); TRIGLYCERIDES LEVEL 186 MG/DL (<150)
[2024-05-24 19:47] LABS: FREE T4 1.21 NG/DL (0.89-1.76); THYROID STIMULATING HORMONE 1.612 uIU/ML (0.55-4.78)
== END ==
LOC: M PLALAB 15:46
PROVIDERS: ATTEND Nurse Practitioner Family
DX: G35 Multiple sclerosis (principal); E78.2 Mixed hyperlipidemia; E89.0 Postprocedural hypothyroidism; E55.9 Vitamin D deficiency, unspecified; R68.82 Decreased libido

== ENCOUNTER → 2024-09-13 | Outpatient (CLI) | payer OTHER ==
[~2024-09-13] MED LIST changes: -DEPA250T32 PO; +DIVA-65 PO; -EQL50TAB2 PO; +LIDO1ADH93 TOP; -LIDO5DIS41 TOP; +PROHANCE 279.3MG/ML 15ML VIAL ONE; +PROHANCE 279.3MG/ML 5ML VIAL ONE; +VITA1TAB82 PO
== END ==
LOC: M PLAIMG 07:34
PROVIDERS: ATTEND Psychiatry & Neurology Neurology
DX: G35 Multiple sclerosis (principal)

== ENCOUNTER → 2024-09-20 | Outpatient (CLI) | payer OTHER ==
[~2024-09-20] MED LIST changes: +ACET-1515 PO; -ACET650T15 PO
== END ==
LOC: M PLAIMG 07:31
PROVIDERS: ATTEND Psychiatry & Neurology Neurology
DX: G35 Multiple sclerosis (principal)

== ENCOUNTER → 2024-10-25 | Outpatient (CLI) | payer OTHER ==
[~2024-10-25] VITALS: Ht 182.9 cm; Wt 92.2 kg
[~2024-10-25] MED LIST changes: +ALBUTEROL SULFATE 2.5 MG/0.5 ML INH CONCENTRATE NEB SOLN INH PRN; +EPINEPHrine INJ 1 MG/ML 1ML AMP IM PRN; -IBUP-1022 PO; +IBUP600T42 PO; -PROHANCE 279.3MG/ML 15ML VIAL ONE; -PROHANCE 279.3MG/ML 5ML VIAL ONE; +diphenhydrAMINE 50 MG/ML VIAL IV PRN
[2024-10-25 08:44] VITALS: BP 150/94; O2SAT 96
[2024-10-25] MEDS: ACETAMINOPHEN 325 MG TAB PO ONE (08:55)
[2024-10-25] MEDS: diphenhydrAMINE 50 MG/ML VIAL IV ONE (08:56)
[2024-10-25] MEDS: OCRELIZUMAB 600 MG in NS 500 ML IV ONE (09:29)
[2024-10-25 10:00] VITALS: BP 122/58; O2SAT 99
[2024-10-25 10:30] VITALS: BP 126/90; O2SAT 98
[2024-10-25 11:30] VITALS: BP 110/68; O2SAT 98
[2024-10-25 12:50] VITALS: BP 106/55; O2SAT 98
== END ==
LOC: M INFU 08:29
PROVIDERS: ATTEND Pediatrics Pediatric Pulmonology
DX: G35 Multiple sclerosis (principal); Z88.1 Allergy status to other antibiotic agents; Z88.5 Allergy status to narcotic agent; Z88.8 Allergy status to other drugs, medicaments and biological substances
CPT/HCPCS: 96365; 96366; 96375; J1200; J2350

== ENCOUNTER → 2024-10-25 | Outpatient (CLI) | payer OTHER ==
[~2024-10-25] MED LIST changes: -ALBUTEROL SULFATE 2.5 MG/0.5 ML INH CONCENTRATE NEB SOLN INH PRN; -EPINEPHrine INJ 1 MG/ML 1ML AMP IM PRN; -diphenhydrAMINE 50 MG/ML VIAL IV PRN
== END ==
LOC: M INFU 08:23
PROVIDERS: ATTEND Pediatrics Pediatric Pulmonology
DX: G35 Multiple sclerosis (principal); Z88.1 Allergy status to other antibiotic agents; Z88.5 Allergy status to narcotic agent; Z88.8 Allergy status to other drugs, medicaments and biological substances